=== PATIENT | female | born 1965 | race Caucasian/White ===

== ENCOUNTER 2021-06-13 10:14 | Observation (INO) | payer SELFPAY ==
[2021-06-13] VITALS (11 sets, daily range): BP systolic 130–196; BP diastolic 66–132; PULSE 98–115; RESP 15–26; TEMP 36.4–36.9; O2SAT 98–100; BMI 29.8; BMI 28.8
--- NOTE | 2021-06-13 10:40 | EDS_ITS ---
HPI History of Present Illness Chief Complaint: Chest Pain Informant: patient Onset/Context/Timing Onset: Yesterday Activity at onset: sudden (While sitting in front of TV at rest) Timing: Continuous Quality: Positive for Aching Location: Substernal and - (1-2 hours ago, spontaneously started getting sharp pains in anterior right axilla part of chest) Current Severity: Moderate Maximum Severity: Moderate Worsened By: Nothing; Not Worsened By Breathing Relieved By: Nothing Associated Symptoms: Positive for Nausea, Vomiting (For past 5 days), Dyspnea (Occasionally with exertion, chronic, no different acutely) and Cough (Mild chronic nonproductive); Negative for Fever, Lightheadedness and Palpitations Narrative Narrative: Patient presents because of chest pain. She states she has had vomiting and diarrhea for the past 5 days but since she has been eating very little due to the vomiting, which comes in spurts, now the diarrhea has tapered and she is barely having stools. She denies any hematemesis or bright red blood per rectum or melena. Most of the emesis is either which she has tried to eat which typically makes her nauseated and vomit, or nonbilious stomach acid light yellow in color. She also states that people have been telling her that she looks really schneider for the past several months although she has not gone anywhere and not been trying to schneider. She states she is having some itching in a couple different places on her extremities like her right elbow. Patient states she does not have any health problems however she does not see a doctor at all due to lack of insurance. She works at a [employer]. Apparently, EMS gave the patient aspirin, Brilinta, and heparin. The prehospital EKG was interpreted by ED physician as NOT a STEMI. Her EKG performed here does not show a STEMI. PFS PFS Medical History no medical history no medical history Home Medications NK 06/13/21 [History Last Taken Unknown] Allergy/AdvReac Type Severity Reaction Status Date / Time No Known Allergies Allergy Verified 06/13/21 10:27 Surgical History no surgical history no surgical history Social History Smoking Status: Current every day smoker tobacco type: cigarettes ROS ROS ED Constitutional Constitutional ED: Reports other Details: Malaise, no syncope or presyncope ; Denies chills or fever(s) Eyes Eyes: Denies change in vision or diplopia ENT ENT ED: Denies rhinorrhea or sore throat Cardiovascular Cardiovascular: Denies chest pain or palpitations Respiratory/Chest Respiratory/Chest: Reports as per HPI, cough and dyspnea on exertion; Denies excessive phlegm production Gastrointestinal Gastrointestinal: Reports as per HPI, diarrhea, nausea and vomiting; Denies abdominal pain Genitourinary Genitourinary ED: Denies dysuria or hematuria Musculoskeletal Musculoskeletal: Denies back pain or neck pain Integumentary Reports as per HPI and change in pigmentation; Denies abscess or rash Neurologic Neurologic: Denies headache(s), paresthesias or weakness Psychiatric Psychiatric: Denies anxiety or suicidal thoughts EXAM Physical Exam Const Vital Signs: 06/13/21 10:15 06/13/21 13:25 Temperature 97.6 F L Temperature Source Temporal Pulse Rate 115 H 101 H Respiratory Rate 25 H 15 Respiratory Effort Normal Non-Labored Blood Pressure 171/132 H 130/89 H Blood Pressure Mean 145 102 Pulse Ox 98 100 Oxygen Delivery Method Room Air Room Air Positive well nourished and well developed General Appearance ED: well developed and NAD HEENT Reports moist mucous membranes normocephalic and atraumatic Eyes PERRL and EOMs intact bilaterally Neck full ROM and supple Resp normal respiratory effort and clear to auscultation bilaterally Cardio regular rate, regular rhythm and no murmurs Jugular Venous Distention: Negative for JVD Rate: tachycardic GI non-tender and non-distended Auscultation: normoactive bowel sounds Palpation: soft Back/Spine no CVA tenderness General Back: other FROM Extremity normal to inspection Extremity Narrative: Hyperpigmented nontender extremities General Extremety ED: Negative for edema, pulses abnormal or tenderness General Extremity: Negative for edema or pulses abnormal Neuro oriented x3, CN's II-XII intact bilaterally and no sensory deficits noted Sensorium / Orientation: awake and alert Motor Exam: strength 5/5 throughout Skin no rashes or lesions noted and no wounds Skin Narrative: Diffuse hyperpigmentation mostly face, chest, upper extremities more than the legs. There are no clear schneider lines. She has some slight nontender erythema at her right olecranon that is nontender and without induration, abscess, or any signs of infection. Heart Score History: Slightly/Non-Suspicious ECG: Normal Age: >45 - <65 years Risk Factors: 1 or 2 Risk Factors Troponin: </= Normal Limit Score: 2 MDM MDM MDM Narrative Medical decision making narrative: Patient is feeling better. Labs are noted as below. Her troponin is within normal limits, we did a delta troponin and went up, the levels are noted. I discussed these with Dr. Hart, as the levels are still under the 99th percentile limit. He recommends placing the patient on a heparin drip and admitting her and cardiology will continue to follow/consult. She barely has any discomfort at this time and as prior to nitroglycerin. Initially the patient was hypertensive, but on recheck she is 130/89, we will continue to monitor that. She has not been hypotensive or in any type of adrenal crisis. I did a baseline cortisol due to her unexplained hyperpigmentation and the fact that I cannot do a stat MSH here. It was within normal limits, and was a random level. Lab Data Attestation: I reviewed the patient's lab results. Labs: Laboratory Results - last 24 hr 06/13/21 06/13/21 06/13/21 11:10 11:10 11:10 WBC 4.7 RBC 4.51 Hgb 14.9 Hct 44.9 MCV 99.6 H MCH 33.0 H MCHC 33.2 RDW Std Deviation 50.1 H RDW Coeff of Gregoria 13.6 Plt Count 231 MPV 10.4 Immature Gran % (Auto) 0.800 Neut % (Auto) 60.2 Lymph % (Auto) 24.1 [place] % (Auto) 11.6 H Eos % (Auto) 2.5 Baso % (Auto) 0.8 Absolute Neuts (auto) 2.9 Absolute Lymphs (auto) 1.14 Nucleated RBC % 0 Sodium 136 Potassium 3.4 L Chloride 98 Carbon Dioxide 32.0 Anion Gap 6 BUN 3 L Creatinine 0.69 Estim Creat Clear Calc 97.58 Est GFR (MDRD) Af Amer 113 Est GFR (MDRD) Non-Af 93 BUN/Creatinine Ratio 4.3 L Glucose 134 H Calcium 8.9 Total Bilirubin 0.50 AST 31 ALT 30 Alkaline Phosphatase 147 H Troponin I High Sens 39 Total Protein 6.7 Albumin 2.8 L Globulin 3.9 Albumin/Globulin Ratio 0.7 L Lipase 53 L TSH 2.12 Cortisol 18.00 Urine Color Urine Clarity Urine pH Ur Specific [place] Urine Protein Urine Glucose (UA) Urine Ketones Urine Occult Blood Urine Nitrite Urine Bilirubin Urine Urobilinogen Ur Leukocyte Esterase Urine RBC Urine WBC Ur Squamous Epith Cells Urine Bacteria Urine Mucus 06/13/21 06/13/21 12:35 12:45 WBC RBC Hgb Hct MCV MCH MCHC RDW Std Deviation RDW Coeff of [place] Plt Count MPV Immature Gran % (Auto) Neut % (Auto) Lymph % (Auto) [place] % (Auto) Eos % (Auto) Baso % (Auto) Absolute Neuts (auto) Absolute Lymphs (auto) Nucleated RBC % Sodium Potassium Chloride Carbon Dioxide Anion Gap BUN Creatinine Estim Creat Clear Calc Est GFR (MDRD) Af Amer Est GFR (MDRD) Non-Af BUN/Creatinine Ratio Glucose Calcium Total Bilirubin AST ALT Alkaline Phosphatase Troponin I High Sens 44 Total Protein Albumin Globulin Albumin/Globulin Ratio Lipase TSH Cortisol Urine Color Yellow Urine Clarity Clear Urine pH 8.0 Ur Specific [place] 1.010 Urine Protein Negative Urine Glucose (UA) Normal Urine Ketones Negative Urine Occult Blood Negative Urine Nitrite Negative Urine Bilirubin Negative Urine Urobilinogen Normal Ur Leukocyte Esterase 25 H Urine RBC 0 SEEN Urine WBC 0 SEEN Ur Squamous Epith Cells 0 SEEN Urine Bacteria 0 SEEN Urine Mucus 0 SEEN Radiography Diagnostic Testing: Clinical Impression(s) from Imaging Studies Chest X-Ray 06/13/21 11:30 IMPRESSION: Normal x-ray examination of the chest. Electronically Signed: Home Hedrick MD at 12:14 EDT , Service support , EKG Initial EKG: Attestation: I personally reviewed and interpreted this EKG as follows: Interpretation: No Acute Injury Pattern and Sinus Tachycardia Comments: Normal intervals and axis. Unchanged compared with EMS EKG. Prior: No Prior Discharge Plan Dx/Rx/DC Orders Clinical Impression: Chest pain, unspecified, Hyperpigmentation Disposition Disposition: Acute Care Hospital [facility]
[2021-06-13 11:17] LABS: Absolute Lymphocyte Count 1.14 X10^3/uL (0.83-4.51); Absolute Neutrophil Count 2.9 X10^3/uL (2.0-7.7); Basophil# 0.04 X10^3/uL; Basophil% 0.8 % (0-1); Eosinophil# 0.12 X10^3/uL; Eosinophils% 2.5 % (0-5); Hematocrit 44.9 % (37-47); Hemoglobin 14.9 g/dL (12.0-15.0); Lymphocyte # 1.14 X10^3/ul (0.83-4.51); Lymphocyte % 24.1 % (19-41); Mean Corp Hgb Conc 33.2 g/dL (32-36); Mean Corpuscular Volume 99.6 fL (81-99); Mean Platelet Vol. 10.4 fl (6.2-12.0); Monocyte# 0.55 X10^3/uL; Monocyte% 11.6 % (0-10); NRBC Flagged by Analyzer 0 % (0-5); Neutrophil # 2.85 X10^3/uL (2.7-7.7); Neutrophil % 60.2 % (47-70); Platelet Count 231 K/mm3 (150-450); RBC Distribution Width CV 13.6 % (11.6-14.6); RBC Distribution Width SD 50.1 fl (35.1-43.9); Red Blood Count 4.51 M/mm3 (4.2-5.4); White Blood Count 4.7 K/mm3 (4.4-11.0)
--- NOTE | 2021-06-13 11:21 | EKG12_ITS ---
Test Reason : CP Blood Pressure : / mmHG Vent. Rate : 112 BPM Atrial Rate : 112 BPM P-R Int : 124 ms QRS Dur : 074 ms QT Int : 376 ms P-R-T Axes : 064 070 064 degrees QTc Int : 513 ms Sinus tachycardia Otherwise normal ECG Confirmed by AMANDA DHILLON, MELISSA ([id number]), news videotape editor TRUPTI NICOLE ([id number]) on 06/17/2021 7:51:14 AM Referred By: BB/ Confirmed By:MELISSA PATEL MD
--- NOTE | 2021-06-13 11:30 | RAD_ITS ---
STUDY: X-RAY CHEST REASON FOR EXAM: Female, 55 years old. Chest pain TECHNIQUE: Single AP portable view of the chest. COMPARISON: None. FINDINGS: EKG electrodes are seen. The lungs are clear and expanded. There is no demonstrated pleural abnormality. Normal size heart. Normal mediastinum and praful. Normal visualized pulmonary arteries. Normal visualized aortic arch and descending thoracic aorta. Normal visualized thoracic spine. Normal visualized ribs, clavicles, and shoulders. There is no demonstrated abnormality of the visualized soft tissue structures of the upper abdomen. RAD/Chest 1 View (Portable) IMPRESSION: Normal x-ray examination of the chest. Electronically Signed: Home Hedrick MD at 12:14 EDT , Service support ,
[2021-06-13 11:46] LABS: ALB/GLOB Ratio 0.7 RATIO (0.9-2.4); AST(SGOT) 31 U/L (15-37); Alanine Aminotransfer ALT/SGPT 30 U/L (13-56); Albumin, Serum 2.8 g/dL (3.2-5.0); Alkaline Phosphatase 147 U/L (45-117); Anion Gap 6 (5-15); BUN 3 mg/dL (7-18); BUN/Creat Ratio 4.3 RATIO (10-20); Calcium,Total 8.9 mg/dL (8.5-10.1); Chloride 98 mmol/L (98-107); Creatinine, Serum 0.69 mg/dL (0.55-1.02); EST Glomerular Filtration Rate 93 mL/min (>60); Est Glom Filt Rate - Afr Amer 113 mL/min (>60); Estimated Creatinine Clearance 97.58 ml/min; Globulin 3.9 g/dL (2.2-4.2); Glucose 134 mg/dL (74-106); Lipase 53 U/L (73-393); Potassium 3.4 mmol/L (3.5-5.1); Protein, Total 6.7 g/dL (6.4-8.2); Sodium Level 136 mmol/L (136-145); Thyroid Stim Hormone (TSH) 2.12 uIU/mL (0.358-3.74); Troponin-I HS 39 pg/mL (3.0-54.0)
[2021-06-13 12:43] LABS: Bacteria 0 SEEN /hpf (None Seen); Mucous, Urine 0 SEEN /hpf (<or=2+); Red Blood Cells-Urine 0 SEEN /hpf (0-5); Squamous Epithelial Cells - UA 0 SEEN /hpf (5-10); White Blood Cells 0 SEEN /hpf (0-5)
[2021-06-13] MEDS: 0.9% Normal Saline 1,000 ML 999 ML IV (12:46)
[2021-06-13] MEDS: Ondansetron 4 MG/2 ML Vial IV (12:47)
[2021-06-13 13:04] LABS: Color, Urine Yellow (Yellow); Glucose, Dipstick Normal (Normal); Ketone-Dipstick Negative (Negative); Leukocyte Esterase-Dipstick 25 /ul (Negative); Nitrite-Dipstick Negative (Negative); Occult Blood-Urine Negative /ul (Negative); Protein-Dipstick Negative (Negative); Urine Bilirubin Dipstick Negative (Negative); Urine Clarity Clear (Clear); Urine Urobilinogen Normal (Normal)
[2021-06-13 13:11] LABS: Troponin-I HS 44 pg/mL (3.0-54.0)
[2021-06-13] MEDS: HEPARIN/D5w 25,000 UNITS 25,000 UNITS/250 ML IV.SOLN. 10 UNITS IV (14:11)
--- NOTE | 2021-06-13 14:24 | HP.PCM.HOS_ITS ---
HPI - General General Date of Admission: 06/13/21 Date of Service: 06/13/21 Chief Complaint: chest pain HPI Narrative TISHA HARTMAN, is a 55 F who presents presents with 1 day history of chest pain. States that her pain went to her back and up in her right axilla. Denies any other constitutional symptoms. EMS was called and EKG was normal but she received ticagrelor as well as a bolus of heparin in route to the emergency room. In the emergency room, patient's EKG was confirmed to be normal and not a STEMI. Troponins went from 39-44. Dr. Hart was contacted through the emergency room and recommended just continue with the heparin and then he will see her and determine what next step she would need. Patient is never had chest pain like this before. Was also noted the patient is hyperpigmented. Patient denies using tanning boost or any recent tanning exposures states that she just stays inside. She notes that some of her friends have commented that she appears more tanned lately. [facility] Medical History (Updated 06/13/21 @ 14:[address] Lefty Contreras DO) HTN (hypertension) Medical History no medical history no medical history (Patient denies but has not seen a physician regularly.) Home Medications NK 06/13/21 [History Last Taken Unknown] Allergy/AdvReac Type Severity Reaction Status Date / Time No Known Allergies Allergy Verified 06/13/21 10:27 Surgical History no surgical history no surgical history Social History (Updated 06/13/21 @ 14:[address] Lefty Contreras DO) Smoking Status: Heavy Smoker (>10/day) alcohol intake: current alcohol intake frequency: 0-2 drinks per day details: But can go days without drinking without withdrawal type symptoms. substance use type: does not use ROS ROS Narrative Patient has been having vomiting and diarrhea for the past 5 days. States that she on rare occasion have it for short periods of time but nothing to this extent. Vital Signs Vital Signs Vital Signs: 06/13/21 10:15 06/13/21 13:25 06/13/21 14:00 Temperature 36.4 C L Temperature Source Temporal Pulse Rate 115 H 101 H 98 Respiratory Rate 25 H 15 26 H Respiratory Effort Normal Non-Labored Blood Pressure 171/132 H 130/89 H 196/66 H Blood Pressure Mean 145 102 109 Pulse Ox 98 100 98 Oxygen Delivery Method Room Air Room Air Room Air 06/13/21 14:13 Temperature 36.6 C Temperature Source Temporal Pulse Rate 101 H Respiratory Rate 26 H Respiratory Effort Blood Pressure 196/66 H Blood Pressure Mean 109 Pulse Ox 98 Oxygen Delivery Method Room Air Weight Weight: 67.1 kg Body Mass Index (BMI) 29.8 Physical Exam Narrative Pleasant. No acute distress and afebrile. Const alert General Appearance: cooperative HEENT normocephalic and head/scalp atraumatic Eyes Eyes Narrative: No icterus Neck no lymphadenopathy Neck Narrative: No thyromegaly Resp normal respiratory effort, no retractions, no use of accessory muscles and clear to auscultation bilaterally Cardio regular rate, regular rhythm, S1 normal heart sound and S2 normal heart sound GI normal to inspection, nondistended, normoactive bowel sounds, soft to palpation, non-tender and non-distended Extremity normal to inspection and no clubbing, cyanosis or edema Peripheral Pulses: Yes pulses 2+ throughout Skin no rashes or lesions noted Skin Narrative: Hyperpigmented throughout. Neuro Neuro Narrative: No clonus Sensorium / Orientation: alert Psych affect normal Results Lab / Micro Data Attestation: I reviewed the patient's lab results. Result Diagrams: 06/13/21 11:10 06/13/21 11:10 Labs: Laboratory Results - last 24 hr 06/13/21 11:10: Sodium 136, Potassium 3.4 L, Chloride 98, Carbon Dioxide 32.0, Anion Gap 6, BUN 3 L, Creatinine 0.69, Estim Creat Clear Calc 97.58, Est GFR (MDRD) Af Amer 113, Est GFR (MDRD) Non-Af 93, BUN/Creatinine Ratio 4.3 L, Glucose 134 H, Calcium 8.9, Total Bilirubin 0.50, AST 31, ALT 30, Alkaline Phosphatase 147 H, Troponin I High Sens 39, Total Protein 6.7, Albumin 2.8 L, Globulin 3.9, Albumin/Globulin Ratio 0.7 L, Lipase 53 L, TSH 2.12 06/13/21 11:10: Cortisol 18.00 06/13/21 11:10: WBC 4.7, RBC 4.51, Hgb 14.9, Hct 44.9, MCV 99.6 H, MCH 33.0 H, MCHC 33.2, RDW Std Deviation 50.1 H, RDW Coeff of Gregoria 13.6, Plt Count 231, MPV 10.4, Immature Gran % (Auto) 0.800, Neut % (Auto) 60.2, Lymph % (Auto) 24.1, [place] % (Auto) 11.6 H, Eos % (Auto) 2.5, Baso % (Auto) 0.8, Absolute Neuts (auto) 2.9, Absolute Lymphs (auto) 1.14, Nucleated RBC % 0 06/13/21 12:35: Urine Color Yellow, Urine Clarity Clear, Urine pH 8.0, Ur Specific [place] 1.010, Urine Protein Negative, Urine Glucose (UA) Normal, Urine Ketones Negative, Urine Occult Blood Negative, Urine Nitrite Negative, Urine Bilirubin Negative, Urine Urobilinogen Normal, Ur Leukocyte Esterase 25 H, Urine RBC 0 SEEN, Urine WBC 0 SEEN, Ur Squamous Epith Cells 0 SEEN, Urine Bacteria 0 SEEN, Urine Mucus 0 SEEN 06/13/21 12:45: Troponin I High Sens 44 Micro: Microbiology 06/13/21 11:50 Nasal Secretion SARS-CoV-2 Antigen (Rapid) - Final EKG Initial EKG: Prior EKG tracings: available for review EKG Rhythm Intrepretation: Sinus Rhythm Radiology Impression Chest X-Ray 06/13/21 11:30 IMPRESSION: Normal x-ray examination of the chest. Electronically Signed: Home Hedrick MD at 12:14 EDT , Service support , Assessment & Plan Assessment/Plan (1) Unstable angina: (2) Hyperpigmentation: (3) HTN (hypertension): QUALIFIERS: Hypertension type: unspecified Qualified Code(s): I10 - Essential (primary) hypertension (4) Hypokalemia: PLAN: 1. Unstable angina * Patient is high risk given that she has untreated hypertension and is actively smoking. * Heart score 3 * Cardiology is already been contacted through the emergency room and will be seeing the patient in consultation. They advised to continue with the heparin drip. * Patient already received ticagrelor as well as heparin bolus through EMS * I will hold off any additional ticagrelor at this point time. 2. Hyperpigmentation * Patient denies any tanning beds, trips down [place] or any kind of intentional tanning. States that it is diffuse * Concern is for adrenal insufficiency * Random cortisol was 18 this afternoon * Will check an ACTH stim test tomorrow morning 3. Hypertension * New diagnosis but likely chronic * Add amlodipine 5 mg daily * Patient may require additional agents 4. Hypokalemia * Replace * Check magnesium 5. Hyperglycemia * Unclear if patient is diabetic * Will start the patient on sliding scale * Check an A1c 6. VTE prophylaxis: Not indicated as patient is anticoagulated. 7. CODE STATUS: Addressed with the patient. Patient wishes to be full code. 8. Code vaccination status: Patient stated that she got her first dose of the [place] vaccine back in February but has not followed up to get her second shot. Discussed with her about getting the second shot while she was here she is open to that. Will administer. She states that she does not have a card with her. Charges/Coding Visit Charges OBSV E&M: 14205 Initial observation care L3
--- NOTE | 2021-06-13 14:37 | EKG12_ITS ---
Test Reason : CP Blood Pressure : / mmHG Vent. Rate : 097 BPM Atrial Rate : 097 BPM P-R Int : 112 ms QRS Dur : 074 ms QT Int : 386 ms P-R-T Axes : 052 071 053 degrees QTc Int : 490 ms Normal sinus rhythm Prolonged QT Abnormal ECG When compared with ECG of 13-JUN-2021 10:17, MANUAL COMPARISON REQUIRED, DATA IS UNCONFIRMED Confirmed by AMANDA DHILLON, MELISSA ([id number]), editor at large TRUPTI NICOLE ([id number]) on 06/18/2021 9:35:49 AM Referred By: KATTY Confirmed By:MELISSA PATEL MD
[2021-06-13 14:45] LABS: International Normalized Ratio 1.2; Prothrombin Time (Protime)PT. 14.3 SECONDS (11.7-14.9)
--- NOTE | 2021-06-13 14:54 | PCS.PANDOC ---
PANDEMIC DOCUMENTATION INITIATED: Date: 04/14/2021 Time: 190
[2021-06-13 15:08] LABS: Partial Thromboplast Time > 250.0 Seconds (24.1-36.2)
[2021-06-13 15:30] LABS: Bedside Glucose 91 mg/dL (70-110)
[2021-06-13] MEDS: Potassium Chloride Oral Tablet 20 MEQ 40 MEQ PO (15:35)
[2021-06-13] MEDS: amLODIPine 5 MG Tablet PO (15:35)
[2021-06-13] MEDS: Pantoprazole Sodium 40 MG Tablet PO (15:35)
[2021-06-13] MEDS: 0.9% Saline Lock 10 ML Syringe IV ×2 (15:46→22:42)
--- NOTE | 2021-06-13 15:50 | CON.PCM.CA_ITS ---
Documented by User: LISY Sweet 06/13/21 16:13 Assessment & Plan Assessment/Plan (1) Chest pain, unspecified: (2) HTN (hypertension): QUALIFIERS: Hypertension type: unspecified Qualified Code(s): I10 - Essential (primary) hypertension PLAN: * will obtain stress test and echo to evaluate for chest pain * symptoms could also be related to GI related, will start on a PPI * it is noted that pt does have HTN, she is not on any home medications. Will adjust medications as needed during hospital stay, then would recommend that pt establish be a PCP. HPI Consult Data Date of Consult: 06/13/21 HPI Narrative HPI Narrative: TISHA HARTMAN, is a 55 F who presented to the ER for CP. Pt notes that last night she started vomiting. This is not new. She does this a few times a month. She then had chest heaviness that radiated to right arm. This was a 6/10. This was concerning and that brought her to the ER. She does note that she uses TUMS frequently. She does smoke and does drink 2-3 mikes hard lemonade a night. She does not see a PCP since she does not have insurance. She is not on any medications. EKG demonstrated Sinus tach. [facility] Medical History HTN (hypertension) Medical History no medical history Home Medications NK 06/13/21 [History Last Taken Unknown] Allergy/AdvReac Type Severity Reaction Status Date / Time No Known Allergies Allergy Verified 06/13/21 10:27 Surgical History no surgical history Social History Smoking Status: Heavy Smoker (>10/day) alcohol intake: current alcohol intake frequency: 0-2 drinks per day details: But can go days without drinking without withdrawal type symptoms. substance use type: does not use ROS Constitutional Constitutional: Reports fatigue; Denies anorexia Eyes Eyes: Reports systems reviewed and no addt'l complaints, except as documented ENT HEENT: Reports systems reviewed and no addt'l complaints, except as documented Cardiovascular Cardiovascular: Reports as per HPI Respiratory/Chest Respiratory/Chest: Reports systems reviewed and no addt'l complaints, except as documented Gastrointestinal Gastrointestinal: Reports abdominal pain and heartburn Genitourinary Genitourinary: Reports systems reviewed and no addt'l complaints, except as documented Musculoskeletal Musculoskeletal: Reports systems reviewed and no addt'l complaints, except as documented Physical Exam Const alert, oriented x3, no apparent distress, average body habitus, no limitations, healthy appearing and well nourished Constitutional Narrative: hyperpigmenation HEENT normocephalic, head/scalp atraumatic, hearing grossly normal bilaterally, external nose normal, nasal mucous membranes and turbinates normal and moist oral mucous membranes Eyes PERRL, EOMs intact bilaterally, conjunctivae normal and no scleral icterus Neck full ROM and no JVD Chest inspection of chest normal Resp normal respiratory effort, normal air movement, no retractions, no use of accessory muscles and clear to auscultation bilaterally Cardio regular rate, regular rhythm, S1 normal heart sound, S2 normal heart sound, no murmurs, no rub, no gallops, no clicks, no JVD and peripheral pulses 2+ throughout GI normal to inspection, nondistended, normoactive bowel sounds, soft to palpation, non-tender and non-distended Extremity normal to inspection, full ROM, normal capillary refill, no joint enlargement and no clubbing, cyanosis or edema Charges/Coding Visit Charges Office Visits / Consults: 51595 IP Consult L4 Objective Data Vital Signs: Vital Signs Temp Pulse Resp BP Pulse Ox 97.8 F 104 H 18 191/99 H 100 06/13/21 14:46 06/13/21 15:00 06/13/21 14:46 06/13/21 14:46 06/13/21 14:46 Oxygen Delivery Method Room Air Weight: 142 lb 10.225 oz Body Mass Index (BMI) 28.8 Intake & Output: Intake and Output for Last 24 Hours 06/11/21 06/12/21 06/13/21 23:59 23:59 23:59 Intake Total 1015.5 / 1015.5 Balance 1015.5 / 1015.5 Lab / Micro Data Result Diagrams: 06/13/21 11:10 06/13/21 11:10 Labs: Laboratory Results - last 24 hr 06/13/21 11:10: Sodium 136, Potassium 3.4 L, Chloride 98, Carbon Dioxide 32.0, Anion Gap 6, BUN 3 L, Creatinine 0.69, Estim Creat Clear Calc 97.58, Est GFR (MDRD) Af Amer 113, Est GFR (MDRD) Non-Af 93, BUN/Creatinine Ratio 4.3 L, Glucose 134 H, Calcium 8.9, Total Bilirubin 0.50, AST 31, ALT 30, Alkaline Phosphatase 147 H, Troponin I High Sens 39, Total Protein 6.7, Albumin 2.8 L, Globulin 3.9, Albumin/Globulin Ratio 0.7 L, Lipase 53 L, TSH 2.12 06/13/21 11:10: Cortisol 18.00 06/13/21 11:10: WBC 4.7, RBC 4.51, Hgb 14.9, Hct 44.9, MCV 99.6 H, MCH 33.0 H, MCHC 33.2, RDW Std Deviation 50.1 H, RDW Coeff of Gregoria 13.6, Plt Count 231, MPV 10.4, Immature Gran % (Auto) 0.800, Neut % (Auto) 60.2, Lymph % (Auto) 24.1, [place] % (Auto) 11.6 H, Eos % (Auto) 2.5, Baso % (Auto) 0.8, Absolute Neuts (auto) 2.9, Absolute Lymphs (auto) 1.14, Nucleated RBC % 0 06/13/21 11:10: PT 14.3, INR 1.2, APTT > 250.0 H* 06/13/21 12:35: Urine Color Yellow, Urine Clarity Clear, Urine pH 8.0, Ur Specific [place] 1.010, Urine Protein Negative, Urine Glucose (UA) Normal, Urine Ketones Negative, Urine Occult Blood Negative, Urine Nitrite Negative, Urine Bilirubin Negative, Urine Urobilinogen Normal, Ur Leukocyte Esterase 25 H, Urine RBC 0 SEEN, Urine WBC 0 SEEN, Ur Squamous Epith Cells 0 SEEN, Urine Bacteria 0 SEEN, Urine Mucus 0 SEEN 06/13/21 12:45: Troponin I High Sens 44 06/13/21 15:27: POC Glucose 91 Micro: Microbiology 06/13/21 11:50 Nasal Secretion SARS-CoV-2 Antigen (Rapid) - Final Cardiology Labs/Tests 06/13/21 11:10: Sodium 136, Potassium 3.4 L, Chloride 98, Carbon Dioxide 32.0, Anion Gap 6, BUN 3 L, Creatinine 0.69, Est GFR (MDRD) Af Amer 113, Est GFR (MDRD) Non-Af 93, BUN/Creatinine Ratio 4.3 L, Glucose 134 H, Calcium 8.9, Total Bilirubin 0.50 06/13/21 11:10: WBC 4.7, RBC 4.51, Hgb 14.9, Hct 44.9, MCV 99.6 H, MCH 33.0 H, MCHC 33.2, Plt Count 231, MPV 10.4, Immature Gran % (Auto) 0.800, Neut % (Auto) 60.2, Lymph % (Auto) 24.1, [place] % (Auto) 11.6 H, Eos % (Auto) 2.5, Baso % (Auto) 0.8, Absolute Neuts (auto) 2.9, Nucleated RBC % 0 06/13/21 11:10: PT 14.3, INR 1.2, APTT > 250.0 H* 06/13/21 12:35: Urine Color Yellow, Urine Clarity Clear, Urine pH 8.0, Ur Specific [place] 1.010, Urine Protein Negative, Urine Glucose (UA) Normal, Urine Ketones Negative, Urine Occult Blood Negative, Urine Nitrite Negative, Urine Bilirubin Negative, Urine Urobilinogen Normal, Ur Leukocyte Esterase 25 H, Urine RBC 0 SEEN, Urine WBC 0 SEEN EKG: Sinus tach with HR of 108 Radiography Diagnostic Testing: Radiology Impression Chest X-Ray 06/13/21 11:30 IMPRESSION: Normal x-ray examination of the chest. Electronically Signed: Home Hedrick MD at 12:14 EDT , Service support , Documented by User: Dr. Sallie Hart MD 06/13/21 17:13 Assessment & Plan Assessment/Plan (1) Chest pain, unspecified: (2) HTN (hypertension): QUALIFIERS: Hypertension type: unspecified Qualified Code(s): I10 - Essential (primary) hypertension (3) Hypokalemia: (4) Unstable angina: PLAN: I saw this patient today at bedside along with the nursing staff and the midlevel Card examination essentially normal, electrocardiogram showed normal sinus rhythm and a series of high sensitive troponins has been negative Patient has risk factors with a history of smoking also has history of alcohol use symptoms could be related to GI We will evaluate with echocardiogram and treadmill nuclear stress test. I agree with the midlevel documentation and the plan of cardiac care. HPI Consult Data Date of Consult: 06/13/21 [facility] Medical History HTN (hypertension) Medical History no medical history Home Medications NK 06/13/21 [History Last Taken Unknown] Allergy/AdvReac Type Severity Reaction Status Date / Time No Known Allergies Allergy Verified 06/13/21 10:27 Surgical History no surgical history Social History Smoking Status: Heavy Smoker (>10/day) alcohol intake: current alcohol intake frequency: 0-2 drinks per day details: But can go days without drinking without withdrawal type symptoms. substance use type: does not use Lab / Micro Data Result Diagrams: 06/13/21 11:10 06/13/21 11:10
--- NOTE | 2021-06-13 15:58 | ECHOD_ITS ---
Reason For Study: CHEST PAIN Procedure This was a 2D Doppler, Color Flow transthoracic echocardiogram. Exam performed in department. Left Ventricle Normal left ventricle. The estimated ejection fraction is EF 55-60 %. Right Ventricle Normal right ventricle. Normal systolic function. Atria Normal left atrium. Normal right atrium. Mitral Valve The mitral valve is structurally normal. No prolapse or stenosis seen. No mitral valve insufficiency. Tricuspid Valve Normal tricuspid valve. No tricuspid valve insufficiency. Aortic Valve Normal aortic valve. Pulmonic Valve The pulmonic valve is not well visualized. Great Vessels Normal aortic root. Pericardium/Pleural No pericardial effusion. MMode/2D Measurements & Calculations LVIDd: 3.8 cm IVSd: 1.2 cm Ao root diam: 2.8 cm LVIDs: 2.5 cm LVPWd: 1.2 cm RVDd: 3.1 cm FS: 34.8 % LAV(MOD-bp): 32.5 ml LVAd ap4: 21.2 cm2 LVAd ap2: 22.3 cm2 LAV(MOD-bp) Indexed: 20.4 ml/m2 LVLd ap4: 7.2 cm LVLd ap2: 7.3 cm LAV(MOD-sp2): 33.5 ml EDV(MOD-sp4): 51.2 ml EDV(MOD-sp2): 57.0 ml LAV(MOD-sp4): 30.0 ml EDV(sp4-el): 52.5 ml EDV(sp2-el): 57.9 ml LVAs ap4: 11.9 cm2 LVAs ap2: 11.4 cm2 LVLs ap4: 6.2 cm LVLs ap2: 5.8 cm ESV(MOD-sp4): 19.8 ml ESV(MOD-sp2): 19.5 ml ESV(sp4-el): 19.5 ml ESV(sp2-el): 19.0 ml EF(MOD-sp4): 61.3 % EF(MOD-sp2): 65.9 % EF(sp4-el): 62.8 % SV(MOD-sp4): 31.4 ml SV(MOD-sp2): 37.6 ml SV(sp4-el): 33.0 ml LA dimension(2D): 3.3 cm LA A4 area: 13.5 cm2 RA A4 area: 11.0 cm2 Doppler Measurements & Calculations MV E max norman: 74.1 cm/sec Lat Peak E' Norman: 4.8 cm/sec Med Peak E' Norman: 4.8 cm/sec E/E' lat: 15.3 E/E' med: 15.5 Ao V2 max: 192.8 cm/sec AI max norman: 459.3 cm/sec LV V1 max: 201.9 cm/sec Ao max P.9 mmHg AI max P.5 mmHg LV V1 max P.3 mmHg AI dec slope: 464.9 cm/sec2 AI P1/2t: 289.4 msec ECHO/Echo Complete Interpretation Summary The estimated ejection fraction is EF 55-60 %. Normal LV systolic function No prior echo to compare Ordering Physician: Hope Khan Performed By: Harper Gonsales, LUCERO, RVT
[2021-06-13 17:25] LABS: Troponin-I HS 42 pg/mL (3.0-54.0)
[2021-06-13 17:50] LABS: Bedside Glucose 137 mg/dL (70-110)
[2021-06-13 22:11] LABS: Bedside Glucose 114 mg/dL (70-110)
[2021-06-13] MEDS: Heparin Injection (Vial) 5,000 UNIT/ML VIAL 5000 UNIT SC (22:33)
[2021-06-13] MEDS: Acetaminophen 325 MG Tablet 650 MG PO (22:41)
[2021-06-13] MEDS: hydrALAZINE 20 MG/ML Vial 10 MG IV (22:41)
[2021-06-14 02:50] VITALS: BP 156/91; PULSE 106; RESP 16; TEMP 36.2; O2SAT 97
[2021-06-14 03:00] VITALS: PULSE 110
--- NOTE | 2021-06-14 05:00 | EKG12_ITS ---
Test Reason : AM Blood Pressure : / mmHG Vent. Rate : 099 BPM Atrial Rate : 099 BPM P-R Int : 122 ms QRS Dur : 076 ms QT Int : 382 ms P-R-T Axes : 064 075 064 degrees QTc Int : 490 ms Normal sinus rhythm Prolonged QT Abnormal ECG When compared with ECG of 13-JUN-2021 15:55, MANUAL COMPARISON REQUIRED, DATA IS UNCONFIRMED Confirmed by AMANDA DHILLON, MELISSA ([id number]), assistant editor VANIA CONWAY ([id number]) on 06/17/2021 2:09:07 PM Referred By: MAGNUS Confirmed By:MELISSA PATEL MD
[2021-06-14 06:15] VITALS: BP 165/98; PULSE 99; RESP 16; TEMP 36.7; O2SAT 99
[2021-06-14] MEDS: Aspirin E.C. 81 MG Tablet PO (06:22)
[2021-06-14 06:36] LABS: Bedside Glucose 114 mg/dL (70-110)
[2021-06-14 06:38] VITALS: BP 165/98; PULSE 99
[2021-06-14] MEDS: hydrALAZINE 20 MG/ML Vial 10 MG IV (06:38)
[2021-06-14] MEDS: 0.9% Saline Lock 10 ML Syringe IV (06:38)
[2021-06-14 07:02] VITALS: PULSE 96
[2021-06-14 07:15] LABS: Anion Gap 5 (5-15); BUN 10 mg/dL (7-18); BUN/Creat Ratio 16.8 RATIO (10-20); Calcium,Total 8.4 mg/dL (8.5-10.1); Chloride 105 mmol/L (98-107); Cholesterol 153 mg/dL (200); Creatinine, Serum 0.59 mg/dL (0.55-1.02); EST Glomerular Filtration Rate 111 mL/min (>60); Est Glom Filt Rate - Afr Amer 135 mL/min (>60); Estimated Creatinine Clearance 110.04 ml/min; Glucose 100 mg/dL (74-106); High Density Lipoprotein 29 mg/dL; Magnesium 2.2 mg/dL (1.6-2.6); Potassium 4.8 mmol/L (3.5-5.1); Sodium Level 139 mmol/L (136-145); Triglycerides 230 mg/dL; Very Low Density Lipoprotein 46 mg/dL (5-40)
[2021-06-14 08:13] LABS: Hemoglobin A1c 5.3 % (3.8-5.6)
[2021-06-14 10:14] VITALS: BP 153/80; PULSE 104; RESP 16; TEMP 37.1; O2SAT 100
[2021-06-14] MEDS: Folic Acid 1 MG Tablet PO (10:23)
[2021-06-14] MEDS: amLODIPine 5 MG Tablet PO (10:23)
[2021-06-14] MEDS: Pantoprazole Sodium 40 MG Tablet PO (10:24)
--- NOTE | 2021-06-14 10:50 | STRESSREP_ITS ---
Stress Test Report Treadmill myocardial perfusion stress test. Indication; 55-year-old patient presented with symptoms of chest pain Patient is heavy smoker, cardiac work-up with a series of troponins negative. Stress protocol: Resting EKG demonstrates. Normal sinus rhythm. Patient exercised according to standard Que protocol. For 4 minutes and 15 seconds, achieving a work level of maximum METS 7.0. The resting heart rate of 104 bpm, humberto to a maximum heart rate of 142 bpm. This value represented 86% of the maximal age-predicted heart rate. The resting blood pressure of 140/68 mmHg, humberto to a maximum blood pressure of 182/82 2 mmHg. Exercise stress test was terminated due to discomfort in lower extremity as well achieving a target heart rate. No symptoms of chest pain reported. Stress EKG showed, no significant ST?T change from the resting EKG, with maximum heart rate of 142 bpm. Arrhythmia: No arrhythmia demonstrated Symptoms: Patient had no symptoms of chest pain Myocardial perfusion protocol. 11.8 mCi ]of Technetium 99m Sestamibi was injected at rest. Following maximal stress, [33.1 mCi ]of Technetium 99m sestamibi was injected. Stress images were obtained stress and rest images were reconstructed and compared in the short axis vertical and horizontal long axis. Gated images were also obtained Perfusion SPECT analysis: Review of the images demonstrate normal uptake of sestamibi at rest, post stress images demonstrate similar uptake of sestamibi to the resting images, homogeneous tracer uptake With no evidence of reversible myocardial ischemia. Gated SPECT analysis: The gated ejection fraction is 68%. Normal LV systolic function with normal LV wall motion Conclusion: Negative treadmill sestamibi myocardial perfusion study for reversible myocardial ischemia Normal LV systolic function Patient has no symptoms to report, in particular no chest pain Sallie Hart MD,FACC,[facility]
--- NOTE | 2021-06-14 11:45 | PCM.DC ---
Documented by User: PATRICIA LinderC 06/14/21 11:51 Discharge Instructions Diet Discharge Diet: Low fat / Low cholesterol Activity Discharge Activity: Return to Normal Activity Dressing / Incision Call your doctor if you observe: Shortness of breath, Dizziness, Chest pain and Increased palpitations (irregular heartbeat) Follow Up Care Please Follow Up With: Aixa Franco When: 1-2 weeks Test Results: Test results from this visit will be discussed in further detail at your follow-up appointment, if applicable. Discharge Plan Admission Admit Date/Time: 06/13/21 14:14 Primary Reason for Your Visit: Chest Pain Attending Provider: Minesh Oliva Primary Care Provider: Care Physician,No Primary Consulting Providers: Sallie Hart Discharge Orders/Prescriptions Prescriptions: New carvedilol 3.125 mg tablet 3.125 mg PO BID 30 Days Qty: 60 RF: 0 Referrals / Follow Up: Care Physician,No Primary [Primary Care Provider] - Disposition Disposition (needs filled in before D/C Order can be placed): Home, Self Care Documented by User: Dr. Minesh Oliva MD 06/14/21 12:23 Discharge Plan Admission Admit Date/Time: 06/13/21 14:14 Primary Reason for Your Visit: Chest Pain Attending Provider: Minesh Oliva Primary Care Provider: Care Physician,No Primary Consulting Providers: Sallie Hart Discharge Orders/Prescriptions Prescriptions: New carvedilol 3.125 mg tablet 3.125 mg PO BID 30 Days Qty: 60 RF: 0 Referrals / Follow Up: Care Physician,No Primary [Primary Care Provider] - Disposition Disposition (needs filled in before D/C Order can be placed): Home, Self Care
--- NOTE | 2021-06-14 11:51 | PCM.DC.SUM ---
Documented by User: SANDIP Linder 06/14/21 11:56 Providers Date of Admission: 06/13/21 Primary Care Physician: No Primary Care Phys Consultations 06/13/21 14:37 Consult: Cardiology Routine Consulting Provider: Sallie Hart Reason for Consult: chest pain EMERGENT Consult: No MD Notified: Yes Date Notified: 06/13/21 Time Notified: 14:22 Method of Notification: Verbal Reason For Visit: CHEST PAIN Diagnosis Discharge Diagnosis (1) Chest pain, unspecified: Status: Acute Code(s): R07.9 - Chest pain, unspecified (2) HTN (hypertension): Status: Acute Code(s): I10 - Essential (primary) hypertension Qualifiers: Hypertension type: unspecified Qualified Code(s): I10 - Essential (primary) hypertension (3) Hypokalemia: Status: Acute Code(s): E87.6 - Hypokalemia (4) Unstable angina: Status: Acute Code(s): I20.0 - Unstable angina Medications at Discharge Home Medications carvedilol 3.125 mg PO BID 30 Days #60 tab 06/14/21 Hospital Course Operations None Procedures 2-D Echocardiogram and Stress test Summary of Care Provided Minutes Spent on Discharge: 35 Hospital Course: Patient is a 55-year-old female who came in on 06/13/2021 with chest pain. Patient states that she has no PCP. Patient denies any medical history however states that she has not seen a physician in some time. Patient underwent echocardiogram which demonstrated EF 55 to 60% as well as a stress test which was negative today. Patient will be discharged with Coreg and instructions to follow-up at [facility] due to not having insurance. Physical Exam Const alert, oriented x3 and no apparent distress General Appearance: cooperative HEENT normocephalic and head/scalp atraumatic Eyes conjunctivae normal and no scleral icterus Neck full ROM and supple General: trachea midline Resp normal respiratory effort, normal air movement and clear to auscultation bilaterally Cardio regular rate, regular rhythm, S1 normal heart sound, S2 normal heart sound and peripheral pulses 2+ throughout Rate: tachycardic GI normal to inspection, nondistended, normoactive bowel sounds, soft to palpation and non-tender Extremity normal capillary refill and no clubbing, cyanosis or edema General Extremity: no tenderness to palpation of joints or extremities Skin skin turgor normal General Skin Exam: no breakdown Lesions: no lesions Rashes: no rashes Neuro oriented x3, moves all extremities, no focal motor deficits and no sensory deficits noted Speech: speech normal Motor Exam: Negative for general weakness Psych affect normal Appearance: appropriate Weight / BMI Weight Weight: 142 lb 10.225 oz Body Mass Index (BMI) 28.8 ABG / Lab / Microbiology Data Result Diagrams: 06/13/21 11:10 06/14/21 05:47 Laboratory: Laboratory Results - last 24 hr 06/13/21 11:10: PT 14.3, INR 1.2, APTT > 250.0 H* 06/13/21 12:35: Urine Color Yellow, Urine Clarity Clear, Urine pH 8.0, Ur Specific [place] 1.010, Urine Protein Negative, Urine Glucose (UA) Normal, Urine Ketones Negative, Urine Occult Blood Negative, Urine Nitrite Negative, Urine Bilirubin Negative, Urine Urobilinogen Normal, Ur Leukocyte Esterase 25 H, Urine RBC 0 SEEN, Urine WBC 0 SEEN, Ur Squamous Epith Cells 0 SEEN, Urine Bacteria 0 SEEN, Urine Mucus 0 SEEN 06/13/21 12:45: Troponin I High Sens 44 06/13/21 15:27: POC Glucose 91 06/13/21 16:50: Troponin I High Sens 42 06/13/21 17:40: POC Glucose 137 H 06/13/21 22:02: POC Glucose 114 H 06/14/21 05:47: Sodium 139, Potassium 4.8, Chloride 105, Carbon Dioxide 29.0, Anion Gap 5, BUN 10, Creatinine 0.59, Estim Creat Clear Calc 110.04, Est GFR (MDRD) Af Amer 135, Est GFR (MDRD) Non-Af 111, BUN/Creatinine Ratio 16.8, Glucose 100, Calcium 8.4 L, Magnesium 2.2, Triglycerides 230 H, Cholesterol 153, LDL Cholesterol 78, VLDL Cholesterol 46 H, HDL Cholesterol 29 L 06/14/21 05:47: Hemoglobin A1c 5.3 06/14/21 06:31: POC Glucose 114 H Microbiology: Microbiology 06/13/21 11:50 Nasal Secretion SARS-CoV-2 Antigen (Rapid) - Final Radiography Diagnostic Testing: Radiology Impression Chest X-Ray 06/13/21 11:30 IMPRESSION: Normal x-ray examination of the chest. Electronically Signed: Home Hedrick MD at 12:14 EDT , Service support , Echocardiogram 06/13/21 15:58 Interpretation Summary The estimated ejection fraction is EF 55-60 %. Normal LV systolic function No prior echo to compare Ordering Physician: Hope Khan Performed By: Harper Gonsales, LUCERO, RVT D/C Instructions Discharge Diet: Low fat / Low cholesterol Call your doctor if you observe: Shortness of breath, Dizziness, Chest pain and Increased palpitations (irregular heartbeat) Please Follow Up With: Aixa Franco When: 1-2 weeks Meaningful Use Info Meaningful Use Diagnoses (Choose all that apply): None applicable Discharge Plan Admission Admit Date/Time: 06/13/21 14:14 Primary Reason for Your Visit: Chest Pain Attending Provider: Minesh Oliva Primary Care Provider: Care Physician,No Primary Consulting Providers: Sallie Hart Discharge Orders/Prescriptions Prescriptions: New carvedilol 3.125 mg tablet 3.125 mg PO BID 30 Days Qty: 60 RF: 0 Referrals / Follow Up: Care Physician,No Primary [Primary Care Provider] - Disposition Disposition (needs filled in before D/C Order can be placed): Home, Self Care Documented by User: Dr. Minesh Oliva MD 06/14/21 12:30 Providers Date of Admission: 06/13/21 Reason For Visit: CHEST PAIN Medications at Discharge Home Medications carvedilol 3.125 mg PO BID 30 Days #60 tab 06/14/21 ABG / Lab / Microbiology Data Result Diagrams: 06/13/21 11:10 06/14/21 05:47 Discharge Plan Admission Admit Date/Time: 06/13/21 14:14 Primary Reason for Your Visit: Chest Pain Attending Provider: Minesh Oliva Primary Care Provider: Care Physician,No Primary Consulting Providers: Sallie Hart Discharge Orders/Prescriptions Prescriptions: New carvedilol 3.125 mg tablet 3.125 mg PO BID 30 Days Qty: 60 RF: 0 Referrals / Follow Up: Care Physician,No Primary [Primary Care Provider] - Disposition Disposition (needs filled in before D/C Order can be placed): Home, Self Care Charges/Coding Addendum Addendum: Dr. Oliva: I personally reviewed the chart and examined the patient, and agree with the above findings. 55-year-old female presents with chest pain that has since resolved. Initial troponin was 39 and then went up to 44 and is now down to 42. Stress test was unremarkable. She is hypertensive and has an elevated heart rate as well. She does not have any primary care prior to admission therefore we will set her up with a [facility] clinic and discharge her on Coreg 3.125 mg p.o. twice daily for blood pressure and as that she follow-up as an outpatient with PCP. Echo was ordered by cardiology was consulted secondary to the slightly elevated troponins. EF was 55 to 60% with normal LV systolic function. I discussed with her the plan for discharge today and she expressed understanding of the risk benefits going home and would like to go home today. Visit Charges OBSV E&M: 19925 Observation care discharge
--- NOTE | 2021-06-14 12:10 | CASEMGMT ---
WES LEONE requested to see pt per Rich HARVEY. WES LEONE in to pt room, pt sitting up in bed in no distress. Pt had questions regarding her stay and how to pay for it. Provided pt with a local healthcare provider directory pamphlet. Pt also aware that this WES LEONE sent to [facility] for assistance. Pt is agreeable to having her meds delivered to her room. WES LEONE notified [facility] that pt requests financial info. TC to [facility], spoke with Ade, states she received the patient assistance form and she will have meds delivered to pt room.
[2021-06-14 13:05] LABS: Bedside Glucose 109 mg/dL (70-110)
--- NOTE | 2021-06-14 14:18 | CM.ED ---
CRISTO Note SW provided patient with self pay packet including the application for [facility] medicaid and food stamps. Patient said that she can apply on line, using her phone, and will review the paperwork when she gets home. SW reviewed that the self packet includes information on prescription benefits and [facility] supports. CRISTO asked if patient had any additional issues or needs and she said no. Plan: Self Pay packet provided Catina THAKUR
== END 2021-06-14 11:51 | disposition home or self-care (01) ==
LOC: ED 13:59 → PCU 14:47
PROVIDERS: Emergency Provider Emergency Medicine; Visit Provider Family Medicine
DX: I20.0 Unstable angina (principal); I10 Essential (primary) hypertension; E87.6 Hypokalemia; F17.210 Nicotine dependence, cigarettes, uncomplicated; Z28.21 Immunization not carried out because of patient refusal; L81.9 Disorder of pigmentation, unspecified; R73.9 Hyperglycemia, unspecified
CPT/HCPCS: 36415; 71045; 78452; 80048; 80053; 80061; 81001; 82533; 82962; 83036; 83690; 83735; 84443; 84484; 85025; 85610; 85730; 87426; 93005; 93017; 93306; 96365; 96372; 96375; 96376; 99218; 99285; 99406; A9500; J7030; A4216; G0378; J2405

== ENCOUNTER 2021-10-23 17:47 | Inpatient (IN) | payer SELFPAY ==
[2021-10-23 17:49] VITALS: BP 141/73; PULSE 85; RESP 14; TEMP 36.5; BMI 28.5
--- NOTE | 2021-10-23 18:43 | EX.ED.DYSGE1 ---
HPI <LISY Merida - Last Filed: 10/23/21 20:32> History of Present Illness Chief Complaint: General Illness Narrative Narrative: 56-year-old female presents with general illness. On 10/18 she started to feel fatigued, lightheaded, and had decreased appetite. She denies fever, chills, N/V/D, chest pain, or shortness of breath. She does have a slight cough but is a smoker (1 PPD). No sick contacts. She is not vaccinated for Covid. Of note she has had chronic issues with her right hand. It has been swelling since Apr 2021. A month ago she saw orthopedics and they were concerned it was a vascular problem so ordered an angiogram which was done on 10/15 at [facility]. 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 She has had wounds on the tips of the index and middle fingers x2 months. They did not do vascular intervention yet or put her on antibiotics. She states she is waiting to hear from Dr. Hannah's office who is at [facility]. She reports no change in the appearance of her right upper extremity. PFSH <LISY Merida - Last Filed: 10/23/21 20:32> [facility] Medical History HTN (hypertension) Medical History no medical history Home Medications carvedilol 6.25 mg PO BID 10/23/21 [History Last Taken 10/23/21] lisinopril-hydrochlorothiazide 1 tab PO DAILY 10/23/21 [History Last Taken 10/23/21] Allergy/AdvReac Type Severity Reaction Status Date / Time No Known Allergies Allergy Verified 10/23/21 17:54 Surgical History no surgical history Social History Smoking Status: Heavy Smoker (>10/day) alcohol intake: current alcohol intake frequency: 0-2 drinks per day details: But can go days without drinking without withdrawal type symptoms. substance use type: does not use ROS <LISY Merida - Last Filed: 10/23/21 20:32> ROS ED ROS Narrative Constitutional: Positive for malaise. Negative for fever, chills. Eyes: Negative for visual change. ENT: Negative for sore throat, ear pain, rhinorrhea. CVS: Negative for palpitations, chest pain, syncope. Respiratory: Negative for shortness of breath, cough, orthopnea. GI: Negative for abdominal pain, nausea, vomiting, diarrhea, constipation, melena, hematochezia. : Negative for dysuria, hematuria or frequency. Neuro: Negative for headache, motor/sensory dysfunction. Skin: Positive for wound on hand. Negative for rash, abscess. Musc: Negative for joint pain, swelling, trauma. Heme: Negative for easy bruising, bleeding, lymphadenopathy. EXAM <LISY Merida - Last Filed: 10/23/21 20:32> Physical Exam Narrative Exam Narrative: CONST: Patient sitting in no acute distress. EYES: Normal inspection. ENT: Normal inspection, dry mucous membranes. NECK: Normal inspection. RESP: No respiratory distress, slight rhonchi and wheezing throughout. CVS: Regular rate and rhythm, no murmur, no gallop. ABD: Soft and nontender, no guarding or rebound, nondistended, no hepatosplenomegaly. Back: Normal inspection. SKIN: Color normal, no rash, warm, dry, intact. EXTREMITIES: Right hand has chronic swelling and thickening of the skin, distal finger pad of index finger is calloused and discolored, distal third finger has yellow seepage under the nail- findings consistent with dry gangrene. Full ROM, 2+ radial pulses, no warmth or erythema. NEURO: Oriented x4. PSYCH: Normal affect. Const Vital Signs: 10/23/21 17:49 10/23/21 18:56 Temperature 97.7 F L Temperature Source Temporal Pulse Rate 85 Respiratory Rate 14 Respiratory Effort Normal Blood Pressure 141/73 H Blood Pressure Mean 95 <Dr. Contreras Harvey MD - Last Filed: 10/23/21 20:31> Physical Exam Const Vital Signs: 10/23/21 17:49 10/23/21 18:56 Temperature 97.7 F L Temperature Source Temporal Pulse Rate 85 Respiratory Rate 14 Respiratory Effort Normal Blood Pressure 141/73 H Blood Pressure Mean 95 MDM <LISY Merida - Last Filed: 10/23/21 20:32> [facility] Lab Data Labs: Laboratory Results - last 24 hr 10/23/21 10/23/2122 18:55 18:55 18:55 WBC 9.0 RBC 4.18 L Hgb 15.3 H Hct 41.9 MCV 100.2 H MCH 36.6 H MCHC 36.5 H RDW Std Deviation 50.9 H RDW Coeff of Gregoria 13.9 Plt Count 379 MPV 9.1 Immature Gran % (Auto) 1.400 H Neut % (Auto) 79.4 H Lymph % (Auto) 12.0 L Story % (Auto) 6.2 Eos % (Auto) 0.9 Baso % (Auto) 0.1 Absolute Neuts (auto) 7.2 Absolute Lymphs (auto) 1.08 Nucleated RBC % 0 ESR Sodium 122 L Potassium 2.9 L Chloride 77 L Carbon Dioxide 32.0 Anion Gap 13 BUN 76 H Creatinine 1.43 H Estim Creat Clear Calc 44.38 Est GFR (MDRD) Af Amer 49 L Est GFR (MDRD) Non-Af 40 L BUN/Creatinine Ratio 53.1 H Glucose 110 H Serum Osmolality Calcium 14.2 H* Total Bilirubin 0.60 Direct Bilirubin 0.09 AST 47 H ALT 41 Alkaline Phosphatase 101 Total Protein 7.0 Albumin 3.1 L Globulin 3.9 TSH 10/23/21 10/23/21 10/23/21 18:55 18:55 19:55 WBC RBC Hgb Hct MCV MCH MCHC RDW Std Deviation RDW Coeff of Gregoria Plt Count MPV Immature Gran % (Auto) Neut % (Auto) Lymph % (Auto) Story % (Auto) Eos % (Auto) Baso % (Auto) Absolute Neuts (auto) Absolute Lymphs (auto) Nucleated RBC % ESR 38 H Sodium Potassium Chloride Carbon Dioxide Anion Gap BUN Creatinine Estim Creat Clear Calc Est GFR (MDRD) Af Amer Est GFR (MDRD) Non-Af BUN/Creatinine Ratio Glucose Serum Osmolality 290 Calcium Total Bilirubin Direct Bilirubin AST ALT Alkaline Phosphatase Total Protein Albumin Globulin TSH 4.11 H Radiography Diagnostic Testing: Clinical Impression(s) from Imaging Studies Chest X-Ray 10/23/21 19:10 IMPRESSION: There are no acute findings. Electronically Signed: Beny Mann MD at 19:56 EST , <Dr. Contreras Harvye MD - Last Filed: 10/23/21 20:31> [facility] Narrative Medical decision making narrative: Patient is a middle-aged woman who smokes 1 pack/day and drinks daily. She not had a drink in 2 days. She states she feels terrible. She feels weak. She complains of dry mouth thirst. She states her urine output has been decreased. She has no energy. She denies night sweats or weight loss. She denies headache. Denies visual, ocular auditory symptoms. She does have a slight cough which is chronic. She denies hemoptysis. She denies pleuritic pain. She denies productive cough at this time. She does report nausea without vomiting diarrhea. She denies change in color, consistency or caliber of her stool. She denies blood in her urine. Her urine is been darker. Patient denies skin lesions. Patient does not appear well. She has a strawberry colored tongue and not many papilla lie on her tongue. Conjunctive is pink. Sclerae anicteric. Lungs reveal some scattered abnormal breath sounds. Heart is regular without murmur, gallop or rub. Abdomen soft nontender no palp pulsatile mass or abdominal bruit. No CVA tenderness noted. There is no clubbing of the extremities. She has palpable radial pulses. She has a nonfocal neurologic exam. Will obtain appropriate blood work to assess for infectious or metabolic cause. CBC is unremarkable. Hemoglobin slightly low at 15.3. MCV is 100.2. Differential reveals a slight shift with no bandemia. Basic metabolic panel is remarkable for a sodium of 122, potassium of 2.9 and chloride of 77. This might be due to but unlikely to 12.5 mg of hydrochlorothiazide. BUN is elevated 76 with a creatinine 1.43. BUN is markedly elevated from baseline and creatinine is slightly elevated from baseline. Her BUN to creatinine ratio is 53:1. Calcium is elevated at 14.2. Hepatic panel was obtained to assess for alkaline phosphatase, total protein and albumin. The hyponatremia may be due to the thiazide diuretic also need to evaluate for SIADH. Since she has hypercalcemia we'll need to evaluate for malignancy. Additional blood work was ordered. A liter of normal saline was ordered wide-open to be followed by infusion at 250 cc/h. Will replenish her potassium orally. Patient has mild hypoalbuminemia. TSH is slightly elevated. Doubt this is the cause of her hyponatremia. Lab Data Attestation: I reviewed the patient's lab results. Lab results narrative: White count is normal. Hemoglobin is slightly elevated 15.3 with an MCV of 100 and Labs: Laboratory Results - last 24 hr 10/23/21 10/23/21 10/23/21 18:55 18:55 18:55 WBC 9.0 RBC 4.18 L Hgb 15.3 H Hct 41.9 MCV 100.2 H MCH 36.6 H MCHC 36.5 H RDW Std Deviation 50.9 H RDW Coeff of Gregoria 13.9 Plt Count 379 MPV 9.1 Immature Gran % (Auto) 1.400 H Neut % (Auto) 79.4 H Lymph % (Auto) 12.0 L Story % (Auto) 6.2 Eos % (Auto) 0.9 Baso % (Auto) 0.1 Absolute Neuts (auto) 7.2 Absolute Lymphs (auto) 1.08 Nucleated RBC % 0 ESR Sodium 122 L Potassium 2.9 L Chloride 77 L Carbon Dioxide 32.0 Anion Gap 13 BUN 76 H Creatinine 1.43 H Estim Creat Clear Calc 44.38 Est GFR (MDRD) Af Amer 49 L Est GFR (MDRD) Non-Af 40 L BUN/Creatinine Ratio 53.1 H Glucose 110 H Serum Osmolality Calcium 14.2 H* Total Bilirubin 0.60 Direct Bilirubin 0.09 AST 47 H ALT 41 Alkaline Phosphatase 101 Total Protein 7.0 Albumin 3.1 L Globulin 3.9 TSH 10/23/21 10/23/21 10/23/21 18:55 18:55 19:55 WBC RBC Hgb Hct MCV MCH MCHC RDW Std Deviation RDW Coeff of Gregoria Plt Count MPV Immature Gran % (Auto) Neut % (Auto) Lymph % (Auto) Story % (Auto) Eos % (Auto) Baso % (Auto) Absolute Neuts (auto) Absolute Lymphs (auto) Nucleated RBC % ESR 38 H Sodium Potassium Chloride Carbon Dioxide Anion Gap BUN Creatinine Estim Creat Clear Calc Est GFR (MDRD) Af Amer Est GFR (MDRD) Non-Af BUN/Creatinine Ratio Glucose Serum Osmolality 290 Calcium Total Bilirubin Direct Bilirubin AST ALT Alkaline Phosphatase Total Protein Albumin Globulin TSH 4.11 H Radiography Chest X-Ray - ED: 1 View (Single view chest x-ray reveals minimal chronic changes. Cardiac silhouette size normal. Perihilar region unremarkable. Osseous structures are unremarkable. There is no evidence of mass to suggest malignancy.) Diagnostic Testing: Clinical Impression(s) from Imaging Studies Chest X-Ray 10/23/21 19:10 IMPRESSION: There are no acute findings. Electronically Signed: Beny Mann MD at 19:56 EST Reading Location ID and State: [facility] / [place] , Service support , <Dr. Contreras Harvey MD - Last Filed: 10/23/21 20:31> Critical Care Time Critical Care Time: Yes Critical care time (excluding procedures): 30-74 minutes (31), Including time spent: (History, physical, review of prior records, documentation, rotation lab results initiation of therapy), Discussing w/Patient &/or Family/Foam Fabricator, Discussing w/Consultants and Arranging Admission or Transfer Discharge Plan Dx/Rx/DC Orders Clinical Impression: Hypercalcemia, Acute hyponatremia, Acute hypokalemia, Acute prerenal azotemia, Creatinine elevation, Macrocytosis without anemia Disposition Disposition: Acute Care Hospital [facility]
[2021-10-23] MEDS: 0.9% Normal Saline 1,000 ML 999 ML IV (18:54)
--- NOTE | 2021-10-23 19:10 | RAD_ITS ---
STUDY: X-RAY CHEST REASON FOR EXAM: Female, 56 years old. CHEST PAIN cough TECHNIQUE: XR Chest 1 View COMPARISON: 06.13.21 FINDINGS: There is no demonstrated pleural abnormality. Normal size heart. Normal mediastinum and praful. Normal visualized pulmonary arteries. Normal visualized aortic arch and descending thoracic aorta. Normal visualized thoracic spine. Normal visualized ribs, clavicles, and shoulders. There is no demonstrated abnormality of the visualized soft tissue structures of the upper abdomen. RAD/Chest 1 View (Portable) IMPRESSION: There are no acute findings. Electronically Signed: Beny Mann MD at 19:56 EST ,
[2021-10-23 19:13] LABS: Absolute Lymphocyte Count 1.08 X10^3/uL (0.83-4.51); Absolute Neutrophil Count 7.2 X10^3/uL (2.0-7.7); Basophil# 0.01 X10^3/uL; Basophil% 0.1 % (0-1); Eosinophil# 0.08 X10^3/uL; Eosinophils% 0.9 % (0-5); Hematocrit 41.9 % (37-47); Hemoglobin 15.3 g/dL (12.0-15.0); Lymphocyte # 1.08 X10^3/ul (0.83-4.51); Mean Corp Hgb Conc 36.5 g/dL (32-36); Mean Corpuscular Hgb 36.6 pg (27.0-32.0); Mean Corpuscular Volume 100.2 fL (81-99); Mean Platelet Vol. 9.1 fl (6.2-12.0); Monocyte# 0.56 X10^3/uL; Monocyte% 6.2 % (0-10); NRBC Flagged by Analyzer 0 % (0-5); Neutrophil # 7.17 X10^3/uL (2.7-7.7); Neutrophil % 79.4 % (47-70); Platelet Count 379 K/mm3 (150-450); RBC Distribution Width CV 13.9 % (11.6-14.6); RBC Distribution Width SD 50.9 fl (35.1-43.9); Red Blood Count 4.18 M/mm3 (4.2-5.4)
[2021-10-23 19:31] LABS: Anion Gap 13 (5-15); BUN 76 mg/dL (7-18); BUN/Creat Ratio 53.1 RATIO (10-20); Calcium,Total 14.2 mg/dL (8.5-10.1); Chloride 77 mmol/L (98-107); Creatinine, Serum 1.43 mg/dL (0.55-1.02); EST Glomerular Filtration Rate 40 mL/min (>60); Est Glom Filt Rate - Afr Amer 49 mL/min (>60); Estimated Creatinine Clearance 44.38 ml/min; Glucose 110 mg/dL (74-106); Potassium 2.9 mmol/L (3.5-5.1); Sodium Level 122 mmol/L (136-145)
[2021-10-23 20:00] VITALS: BP 115/72; PULSE 72; RESP 17; O2SAT 94
[2021-10-23 20:04] LABS: AST(SGOT) 47 U/L (15-37); Alanine Aminotransfer ALT/SGPT 41 U/L (13-56); Albumin, Serum 3.1 g/dL (3.2-5.0); Alkaline Phosphatase 101 U/L (45-117); Bilirubin, Direct 0.09 mg/dL (0.00-0.30); Globulin 3.9 g/dL (2.2-4.2)
[2021-10-23 20:13] LABS: Erythrocyte Sedimentation Rate 38 mm/hr (0-30)
[2021-10-23 20:16] LABS: Thyroid Stim Hormone (TSH) 4.11 uIU/mL (0.358-3.74)
[2021-10-23 20:21] LABS: Osmolality, Serum 290 mOsm/KG (275-295)
[2021-10-23] MEDS: Potassium Chloride Oral Soln 20 MEQ/15 ML UDC 40 MEQ PO ×2 (20:26→21:15)
[2021-10-23 20:37] LABS: Vitamin B12 1618 pg/mL (211-911)
--- NOTE | 2021-10-23 20:43 | PCM.HP.STD ---
HPI - General General Date of Admission: 10/23/21 HPI Narrative TISHA HARTMAN, is a 56 F with a significant history of peripheral artery disease; tobacco abuse and alcoholism who presents to the emergency department with malaise. Associated with her symptoms is lightheadedness; anorexia and insomnia. Her symptoms has been going on for about 4 days. Her symptoms has been progressively worsening. Also she has peripheral artery disease and had an angiogram recently. Patient follows up with a vascular surgeon. [facility] Medical History HTN (hypertension) Home Medications carvedilol 6.25 mg PO BID 10/23/21 [History Last Taken 10/23/21] lisinopril-hydrochlorothiazide 1 tab PO DAILY 10/23/21 [History Last Taken 10/23/21] Allergy/AdvReac Type Severity Reaction Status Date / Time No Known Allergies Allergy Verified 10/23/21 17:54 Surgical History History of appendectomy Previous section Social History Smoking Status: Heavy Smoker (>10/day) alcohol intake: current alcohol intake frequency: 0-2 drinks per day details: But can go days without drinking without withdrawal type symptoms. substance use type: does not use ROS ROS Narrative Review of system Pertinent positives and pertinent negatives as noted in HPI. All other systems were reviewed and are negative. Vital Signs Vital Signs Vital Signs: 10/23/21 17:49 10/23/21 18:56 Temperature 97.7 F L Temperature Source Temporal Pulse Rate 85 Respiratory Rate 14 Respiratory Effort Normal Blood Pressure 141/73 H Blood Pressure Mean 95 Weight Weight: 64 kg Body Mass Index (BMI) 28.5 Physical Exam Narrative Physical exam: General: Well-nourished, well-developed. Head: Normocephalic, atraumatic, no tenderness Eyes: PERRLA, EOMI Neck: Nontender, full range of motion, no spinal tenderness, deformities, step-off CVS: Regular rate and rhythm. S1-S2 present. Murmur present, gallop or rub. Respiratory : clear to auscultation bilaterally, chest wall nontender, no wheezing Abdomen: Soft, nontender, nondistended, normal bowel sounds, no masses : Deferred Back: Nontender, no CVA tenderness, no midline spinal tenderness, deformities, step-offs Extremities: Necrotic fingers. Skin: Normal color, no trauma, abrasions Neuro: Alert, oriented, cranial nerves II through XII grossly intact. Psychiatry: Normal mood. Normal affect. Not depressed. Not anxious. Results Lab / Micro Data Result Diagrams: 10/23/21 18:55 10/23/21 18:55 Labs: Laboratory Results - last 24 hr 10/23/21 18:55: WBC 9.0, RBC 4.18 L, Hgb 15.3 H, Hct 41.9, MCV 100.2 H, MCH 36.6 H, MCHC 36.5 H, RDW Std Deviation 50.9 H, RDW Coeff of Gregoria 13.9, Plt Count 379, MPV 9.1, Immature Gran % (Auto) 1.400 H, Neut % (Auto) 79.4 H, Lymph % (Auto) 12.0 L, [place] % (Auto) 6.2, Eos % (Auto) 0.9, Baso % (Auto) 0.1, Absolute Neuts (auto) 7.2, Absolute Lymphs (auto) 1.08, Nucleated RBC % 0 10/23/21 18:55: Sodium 122 L, Potassium 2.9 L, Chloride 77 L, Carbon Dioxide 32.0, Anion Gap 13, BUN 76 H, Creatinine 1.43 H, Estim Creat Clear Calc 44.38, Est GFR (MDRD) Af Amer 49 L, Est GFR (MDRD) Non-Af 40 L, BUN/Creatinine Ratio 53.1 H, Glucose 110 H, Calcium 14.2 H* 10/23/21 18:55: Total Bilirubin 0.60, Direct Bilirubin 0.09, AST 47 H, ALT 41, Alkaline Phosphatase 101, Total Protein 7.0, Albumin 3.1 L, Globulin 3.9 10/23/21 18:55: TSH 4.11 H 10/23/21 18:55: ESR 38 H 10/23/21 19:55: Serum Osmolality 290 10/23/21 19:55: Vitamin B12 1618 H Micro: Microbiology 10/23/21 19:05 Nasal Secretion SARS-CoV-2 Antigen (Rapid) - Final Radiology Impression Chest X-Ray 10/23/21 19:10 IMPRESSION: There are no acute findings. Electronically Signed: Beny Mann MD at 19:56 EST Reading Location ID and State: [facility] / [place] , Service support , Assessment & Plan Assessment/Plan (1) Hypercalcemia: (2) Acute hyponatremia: (3) Acute hypokalemia: (4) Acute prerenal azotemia: PLAN: Acute hypercalcemia Calcium level of 14.2. Albumin is 3.1. Corrected for low albumin calcium is actually 14.9. Chest x-ray was visualized and independently interpreted. I agree with the latest impression of no acute findings. Also there is hyperinflation. Check vitamin D level. Check a PTH. Check SPEP and UPEP. Of note patient is on hydrochlorothiazide which can cause hypercalcemia. Stop hydrochlorothiazide as patient also has a concomitant DANGELO. At the emergency department patient received IV fluid bolus. Normal saline IV with IV potassium ordered. Nephrology consult. Hyponatremia Sodium presentation was 122. Serum osmolality is normal at 290 Check uric acid The patient is on hydrochlorothiazide that will affect urine osmolality and urine sodium. TSH is mildly elevated. Check a.m. cortisol. Gentle IV hydration. Trend BMP. Hypokalemia Potassium on presentation was 2.9. Received p.o. potassium emergency department. Normal saline with potassium infusion ordered. Trend BMP. Erythrocytosis Review of labs showed hemoglobin 15.3, mildly elevated. Hemoglobin on 06/13/2021 was 14.9. Likely secondary to smoking with dehydration contributing. Trend CBC. DANGELO Creatinine of 1.43. BUN is 76. BUN over creatinine is 53.1. Her creatinine in 2020 was 0.59 and 0.69. Likely prerenal. IV hydration as above. Trend BMP. Avoid nephrotoxins. Hold lisinopril and hydrochlorothiazide held. Avoid NSAIDs. Hypertension Blood pressure is not within goal Carvedilol continued. Lisinopril and hydrochlorothiazide held secondary to DANGELO. As needed hydralazine ordered. Trend blood pressure and adjust blood pressure medications. Tobacco abuse Counseled Declined nicotine patch stating that with her PAD she has instructed not even to very take a nicotine patch DVT prophylaxis Subcutaneous Lovenox ordered. Charges/Coding Visit Charges Inpatient E&M: 72157 Init Hosp L3
[2021-10-23 20:45] VITALS: BP 112/80; PULSE 76; RESP 17; TEMP 36.4; O2SAT 94
[2021-10-23] MEDS: 0.9% Normal Saline 1,000 ML 250 ML IV (20:55)
--- NOTE | 2021-10-23 21:01 | PCM.HP.STD ---
HPI - General General Date of Admission: 10/23/21 HPI Narrative TISHA HARTMAN, is a 56 F who presents [facility] Medical History HTN (hypertension) Medical History no medical history Home Medications carvedilol 6.25 mg PO BID 10/23/21 [History Last Taken 10/23/21] lisinopril-hydrochlorothiazide 1 tab PO DAILY 10/23/21 [History Last Taken 10/23/21] Allergy/AdvReac Type Severity Reaction Status Date / Time No Known Allergies Allergy Verified 10/23/21 17:54 Surgical History no surgical history Social History Smoking Status: Heavy Smoker (>10/day) alcohol intake: current alcohol intake frequency: 0-2 drinks per day details: But can go days without drinking without withdrawal type symptoms. substance use type: does not use Vital Signs Vital Signs Vital Signs: 10/23/21 17:49 10/23/21 18:56 10/23/21 20:00 Temperature 97.7 F L Temperature Source Temporal Pulse Rate 85 72 Respiratory Rate 14 17 Respiratory Effort Normal Blood Pressure 141/73 H 115/72 Blood Pressure Mean 95 86 Pulse Ox 94 Oxygen Delivery Method Room Air 10/23/21 20:45 Temperature 97.5 F L Temperature Source Oral Pulse Rate 76 Respiratory Rate 17 Respiratory Effort Blood Pressure 112/80 Blood Pressure Mean 90 Pulse Ox 94 Oxygen Delivery Method Room Air Weight Weight: 64 kg Body Mass Index (BMI) 28.5 Results Lab / Micro Data Result Diagrams: 10/23/21 18:55 10/23/21 18:55 Labs: Laboratory Results - last 24 hr 10/23/21 18:55: WBC 9.0, RBC 4.18 L, Hgb 15.3 H, Hct 41.9, MCV 100.2 H, MCH 36.6 H, MCHC 36.5 H, RDW Std Deviation 50.9 H, RDW Coeff of Gregoria 13.9, Plt Count 379, MPV 9.1, Immature Gran % (Auto) 1.400 H, Neut % (Auto) 79.4 H, Lymph % (Auto) 12.0 L, [place] % (Auto) 6.2, Eos % (Auto) 0.9, Baso % (Auto) 0.1, Absolute Neuts (auto) 7.2, Absolute Lymphs (auto) 1.08, Nucleated RBC % 0 10/23/21 18:55: Sodium 122 L, Potassium 2.9 L, Chloride 77 L, Carbon Dioxide 32.0, Anion Gap 13, BUN 76 H, Creatinine 1.43 H, Estim Creat Clear Calc 44.38, Est GFR (MDRD) Af Amer 49 L, Est GFR (MDRD) Non-Af 40 L, BUN/Creatinine Ratio 53.1 H, Glucose 110 H, Calcium 14.2 H* 10/23/21 18:55: Total Bilirubin 0.60, Direct Bilirubin 0.09, AST 47 H, ALT 41, Alkaline Phosphatase 101, Total Protein 7.0, Albumin 3.1 L, Globulin 3.9 10/23/21 18:55: TSH 4.11 H 10/23/21 18:55: ESR 38 H 10/23/21 19:55: Serum Osmolality 290 10/23/21 19:55: Vitamin B12 1618 H Micro: Microbiology 10/23/21 19:05 Nasal Secretion SARS-CoV-2 Antigen (Rapid) - Final Radiology Impression Chest X-Ray 10/23/21 19:10 IMPRESSION: There are no acute findings. Electronically Signed: Beny Mann MD at 19:56 EST ,
[2021-10-23 21:49] VITALS: PULSE 77; BMI 26.3
[2021-10-23 21:57] LABS: Uric Acid 12.4 mg/dL (2.6-6.0)
[2021-10-23 22:00] VITALS: BP 134/84; PULSE 76; RESP 16; TEMP 36.3; O2SAT 98
[2021-10-23] MEDS: MELATONIN 3 MG TABLET PO (22:51)
[2021-10-23] MEDS: Carvedilol 6.25 MG Tablet PO (22:51)
[2021-10-23] MEDS: Acetaminophen 325 MG Tablet 650 MG PO (22:51)
[2021-10-24] VITALS (9 sets, daily range): BP systolic 109–155; BP diastolic 60–75; PULSE 73–90; RESP 14–17; TEMP 36.6–36.7; O2SAT 92–100
[2021-10-24] MEDS: KCL 20MEQ in 0.9% NS 20 MEQ/1,000 ML IV.SOLN. 100 MEQ IV (00:19)
[2021-10-24 02:36] LABS: Anion Gap 8 (5-15); BUN 69 mg/dL (7-18); BUN/Creat Ratio 57.5 RATIO (10-20); Calcium,Total 12.7 mg/dL (8.5-10.1); Chloride 92 mmol/L (98-107); EST Glomerular Filtration Rate 49 mL/min (>60); Est Glom Filt Rate - Afr Amer 60 mL/min (>60); Estimated Creatinine Clearance 48.84 ml/min; Glucose 111 mg/dL (74-106); Sodium Level 128 mmol/L (136-145)
[2021-10-24 06:41] LABS: Absolute Neutrophil Count 5.6 X10^3/uL (2.0-7.7); Basophil# 0.02 X10^3/uL; Basophil% 0.3 % (0-1); Eosinophil# 0.08 X10^3/uL; Eosinophils% 1.1 % (0-5); Hematocrit 37.4 % (37-47); Hemoglobin 12.9 g/dL (12.0-15.0); Lymphocyte % 9.8 % (19-41); Mean Corp Hgb Conc 34.5 g/dL (32-36); Mean Corpuscular Hgb 35.5 pg (27.0-32.0); Mean Platelet Vol. 8.9 fl (6.2-12.0); Monocyte# 0.58 X10^3/uL; Monocyte% 8.2 % (0-10); NRBC Flagged by Analyzer 0 % (0-5); Neutrophil % 78.8 % (47-70); Platelet Count 301 K/mm3 (150-450); RBC Distribution Width CV 14.3 % (11.6-14.6); RBC Distribution Width SD 53.8 fl (35.1-43.9); Red Blood Count 3.63 M/mm3 (4.2-5.4); White Blood Count 7.1 K/mm3 (4.4-11.0)
[2021-10-24 07:04] LABS: Anion Gap 8 (5-15); BUN 61 mg/dL (7-18); BUN/Creat Ratio 70.2 RATIO (10-20); Calcium,Total 11.7 mg/dL (8.5-10.1); Chloride 96 mmol/L (98-107); Creatinine, Serum 0.87 mg/dL (0.55-1.02); EST Glomerular Filtration Rate 72 mL/min (>60); Est Glom Filt Rate - Afr Amer 87 mL/min (>60); Estimated Creatinine Clearance 67.36 ml/min; Glucose 109 mg/dL (74-106); Potassium 3.8 mmol/L (3.5-5.1); Sodium Level 130 mmol/L (136-145)
[2021-10-24 07:18] LABS: Thyroid Stim Hormone (TSH) 2.61 uIU/mL (0.358-3.74)
[2021-10-24] MEDS: Carvedilol 6.25 MG Tablet PO ×2 (08:13→21:12)
[2021-10-24] MEDS: Enoxaparin 40 MG/0.4 ML Syringe SC (08:13)
[2021-10-24 08:20] LABS: PTHIN 19.4 pg/mL (18.4-80.1)
[2021-10-24 08:25] LABS: Vitamin D,25 Hydroxy 10.6 ng/mL
[2021-10-24] MEDS: KCL 40mEq in 0.9% NS 40 MEQ/1,000 ML IV.SOLN 100 MEQ IV ×2 (09:31→17:15)
[2021-10-24 09:55] LABS: Anion Gap 4 (5-15); BUN 54 mg/dL (7-18); BUN/Creat Ratio 63.8 RATIO (10-20); Calcium,Total 11.6 mg/dL (8.5-10.1); Chloride 100 mmol/L (98-107); Creatinine, Serum 0.85 mg/dL (0.55-1.02); EST Glomerular Filtration Rate 74 mL/min (>60); Est Glom Filt Rate - Afr Amer 89 mL/min (>60); Estimated Creatinine Clearance 68.95 ml/min; Glucose 107 mg/dL (74-106); Potassium 4.1 mmol/L (3.5-5.1); Sodium Level 132 mmol/L (136-145)
[2021-10-24] MEDS: Pantoprazole Sodium 40 MG Tablet PO ×2 (10:27→21:12)
--- NOTE | 2021-10-24 10:35 | CASEMGMT ---
CRISTO met with patient. Introduced self and role at [facility]. Patient did apply for Medicaid after her last hospitalization in 2020. She said she never heard anything. She did call [employer] and they had nothing on file. Patient said she should probably re-apply. CRISTO told her that would be a good idea. Patient does have a Primary care doctor with [facility] and is receiving their financial assistance for her care. Patient said the only medications she is on are her heart medicines and they are not very expensive. Patient is aware of [facility]. CRISTO gave patient information on [email or web address]. Patient does have access to the internet. [facility] would not be able to assist patient with discharge meds as she received help approximately 5 months ago. Program can only be used once a year which is based on last time patient received assistance. Kaye Farrell [employer] PLUMBER HELPER MAHAMED
--- NOTE | 2021-10-24 11:25 | CASEMGMT ---
WES LEONE assessment: Face to Face with patient for initial transition planning/care coordination assessment. WES LEONE introduced self and role at [facility], pt voices understanding and consents to assessment. Pt is lying in bed in no distress on room air. Pt is A/Ox4 and answers all questions appropriately. Care providers, pharmacy, and demographics verified. Presentation: Pt w/ decreased appetite, bilat hip pain, and fatigue since wednesday Admitting dx: Hyponatremia, hypocalcemia PCP: Vito Specialists: rosa Kong Pharmacy: [facility]/Kimberly Rojo Insurance: SP Prescription Benefit: SP-pt already utilized [facility] Rx assist program in 05/2021 Living Will/HPOA: Pt does not have LW/HPOA and declines AD info. LNOK: Phyllis Priest, daughter Living Arrangements: Pt lives alone in 2 story home and states no concerns at home. Pt is independent with ADL's. Transportation: Pt drives self and states no transportation concerns. DME/HHC: Pt states no current DME or need for any further DME. Pt states no hx of SNF or HHC. Pt states no concerns with going home at time of discharge. 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 Pt states smokes 1/2 pack cigarettes daily and drinks 2-22oz beers daily and last drink was 10/19/21. Pt states is trying to quit smoking and is interested in resources for ETOH abuse. Gregorio SW aware. Pt states no further concerns/needs. CM to follow for any further discharge planning/needs. Advised pt to ask for CM if any further questions/concerns/needs arise, voices understanding. Pt Goal: Home Plan[place] [place]ONE
--- NOTE | 2021-10-24 12:04 | CASEMGMT ---
Per RN CM patient would like information on substance abuse for her alcoholism. SW Provided patient with information on [facility] on Alcoholism and Drug Abuse as well as AA meetings. Kaye IRBY
[2021-10-24 13:57] LABS: Anion Gap 4 (5-15); BUN 45 mg/dL (7-18); BUN/Creat Ratio 61.6 RATIO (10-20); Calcium,Total 11.5 mg/dL (8.5-10.1); Chloride 101 mmol/L (98-107); Creatinine, Serum 0.73 mg/dL (0.55-1.02); EST Glomerular Filtration Rate 88 mL/min (>60); Est Glom Filt Rate - Afr Amer 106 mL/min (>60); Estimated Creatinine Clearance 80.28 ml/min; Glucose 107 mg/dL (74-106); Potassium 4.4 mmol/L (3.5-5.1); Sodium Level 132 mmol/L (136-145)
--- NOTE | 2021-10-24 14:11 | PN.HOSP_ITS ---
Documented by User: Samanta Torres NP, RULING MACHINE SET UP OPERATOR-C 10/24/21 14:24 Subjective Subjective Patient seen and examined. Reports general malaise. Reports indigestion. Denies nausea, vomiting. States she was taking Tums frequently at home due to ongoing indigestion. Objective Data Objective Data Vital Signs: Vital Signs Temp Pulse Resp BP Pulse Ox 98.1 F 73 16 155/61 H 92 10/24/21 13:37 10/24/21 13:37 10/24/21 13:37 10/24/21 13:37 10/24/21 13:37 Oxygen Delivery Method Room Air Weight: 130 lb 4.691 oz Body Mass Index (BMI) 26.3 Intake & Output: Intake and Output for Last 24 Hours 10/22/21 10/23/21 10/24/21 23:59 23:59 23:59 Intake Total 1000 / 1000 2396.67 / 2396.67 Output Total 400 / 400 Balance 1000 / 1000 1995.67 / Medical Nutrition Assessment Dietitian: Malnutrition Criteria Met Start: 10/24/21 12:33 Freq: Status: Active Protocol: Document 10/24/21 12:33 AG (Rec: 10/24/21 12:33 [id number]) Nutrition Malnutrition Evidence of Malnutrition Exists Yes Malnutrition (severe): Acute Illness/Injury Evidenced By Suboptimal Energy Intake ( Severe),Weight Loss (Severe) Clinical Problem Acute Disease or Injury Related Malnutrition Etiology severe, acute malnutrition r/t inadequate energy intake d/t acute illness Signs/Symptoms as evidenced by reported PO intake meeting <50% of estimated energy needs x 1 week; reported unintentional wt loss of 9.7#/7% wt loss x 1 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 Will add 120mL ensure compact 4x/ day w/ medpass for additional calories/protein if consumed. Lab / Micro Data Result Diagrams: 10/24/21 06:00 10/24/21 13:20 Labs: Laboratory Results - last 24 hr 10/23/21 18:55: WBC 9.0, RBC 4.18 L, Hgb 15.3 H, Hct 41.9, MCV 100.2 H, MCH 36.6 H, MCHC 36.5 H, RDW Std Deviation 50.9 H, RDW Coeff of Gregoria 13.9, Plt Count 379, MPV 9.1, Immature Gran % (Auto) 1.400 H, Neut % (Auto) 79.4 H, Lymph % (Auto) 12.0 L, [place] % (Auto) 6.2, Eos % (Auto) 0.9, Baso % (Auto) 0.1, Absolute Neuts (auto) 7.2, Absolute Lymphs (auto) 1.08, Nucleated RBC % 0 10/23/21 18:55: Sodium 122 L, Potassium 2.9 L, Chloride 77 L, Carbon Dioxide 32.0, Anion Gap 13, BUN 76 H, Creatinine 1.43 H, Estim Creat Clear Calc 44.38, Est GFR (MDRD) Af Amer 49 L, Est GFR (MDRD) Non-Af 40 L, BUN/Creatinine Ratio 53.1 H, Glucose 110 H, Calcium 14.2 H* 10/23/21 18:55: Total Bilirubin 0.60, Direct Bilirubin 0.09, AST 47 H, ALT 41, Alkaline Phosphatase 101, Total Protein 7.0, Albumin 3.1 L, Globulin 3.9 10/23/21 18:55: TSH 4.11 H 10/23/21 18:55: ESR 38 H 10/23/21 18:55: Uric Acid 12.4 H 10/23/21 19:55: Serum Osmolality 290 10/23/21 19:55: Vitamin B12 1618 H 10/24/21 01:52: Sodium 128 L, Potassium 4.0, Chloride 92 L, Carbon Dioxide 28.0, Anion Gap 8, BUN 69 H, Creatinine 1.20 H, Estim Creat Clear Calc 48.84, Est GFR (MDRD) Af Amer 60, Est GFR (MDRD) Non-Af 49 L, BUN/Creatinine Ratio 57.5 H, Glucose 111 H, Calcium 12.7 H* 10/24/21 06:00: WBC 7.1, RBC 3.63 L, Hgb 12.9, Hct 37.4, MCV 103.0 H, MCH 35.5 H , MCHC 34.5 D, RDW Std Deviation 53.8 H, RDW Coeff of Gregoria 14.3, Plt Count 301, MPV 8.9, Immature Gran % (Auto) 1.800 H, Neut % (Auto) 78.8 H, Lymph % (Auto) 9.8 L, [place] % (Auto) 8.2, Eos % (Auto) 1.1, Baso % (Auto) 0.3, Absolute Neuts (auto) 5.6, Absolute Lymphs (auto) 0.70 L, Nucleated RBC % 0 10/24/21 06:00: TSH 2.61 10/24/21 06:00: Vitamin D 25-Hydroxy 10.6, Cortisol 35.10 H 10/24/21 06:00: PTH Intact 19.4 10/24/21 06:00: Sodium 130 L, Potassium 3.8, Chloride 96 L, Carbon Dioxide 26.0, Anion Gap 8, BUN 61 H, Creatinine 0.87, Estim Creat Clear Calc 67.36, Est GFR (MDRD) Af Amer 87, Est GFR (MDRD) Non-Af 72, BUN/Creatinine Ratio 70.2 H, Glucose 109 H, Calcium 11.7 H 10/24/21 09:22: Sodium 132 L, Potassium 4.1, Chloride 100, Carbon Dioxide 28.0, Anion Gap 4 L, BUN 54 H, Creatinine 0.85, Estim Creat Clear Calc 68.95, Est GFR (MDRD) Af Amer 89, Est GFR (MDRD) Non-Af 74, BUN/Creatinine Ratio 63.8 H, Glucose 107 H, Calcium 11.6 H 10/24/21 13:20: Sodium 132 L, Potassium 4.4, Chloride 101, Carbon Dioxide 27.0, Anion Gap 4 L, BUN 45 H, Creatinine 0.73, Estim Creat Clear Calc 80.28, Est GFR (MDRD) Af Amer 106, Est GFR (MDRD) Non-Af 88, BUN/Creatinine Ratio 61.6 H, Gluc ose 107 H, Calcium 11.5 H Micro: Microbiology 10/23/21 19:05 Nasal Secretion SARS-CoV-2 Antigen (Rapid) - Final Radiography Diagnostic Testing: Radiology Impression Chest X-Ray 10/23/21 19:10 IMPRESSION: There are no acute findings. Electronically Signed: Beny Mann MD at 19:56 EST , Physical Exam Const alert, oriented x3 and no apparent distress Orientation / Consciousness: awake, oriented to person, oriented to place and oriented to time HEENT normocephalic and moist oral mucous membranes Eyes PERRL, EOMs intact bilaterally and conjunctivae normal Neck no lymphadenopathy Resp normal respiratory effort and clear to auscultation bilaterally Cardio regular rate, regular rhythm and no murmurs Peripheral Pulses: pulses 2+ throughout GI normal to inspection, nondistended, normoactive bowel sounds, non-tender and non-distended Extremity normal to inspection Skin no rashes or lesions noted Lesions: no lesions Rashes: no rashes Trauma: no lacerations or abrasions Neuro CN's II-XII intact bilaterally, no focal motor deficits, no sensory deficits noted and deep tendon reflexes 2+ bilaterally Psych mental status grossly normal and affect normal Assessment & Plan Assessment/Plan (1) Hypercalcemia: (2) Acute hyponatremia: PLAN: 1. Acute hypercalcemia-improving. Trend labs. Vitamin D, PTH, SPEP pending. HCTZ discontinued. Patient also reports frequent use of Tums for indigestion. Nephrology consulted. 2. Hyponatremia, likely beer protomania versus hypovolemic hyponatremia- improving, continue IV fluids. Trend BMP. 3. Acute kidney injury-resolved with IV fluids. 4. Hypertension-continue carvedilol. Lisinopril/HCTZ held secondary to acute kidney injury. As needed hydralazine. 5. Alcohol dependence-encouraged cessation. No active withdrawal symptoms. 6. Erythrocytosis-likely due to smoking and dehydration. 7. Peripheral arterial disease-does not appear to be on regimen. Follows with vascular surgery. 8. Tobacco abuse-encouraged cessation. 9. GERD-initiated on PPI. 10. Severe protein calorie malnutrition-dietitian following. Continue supplement per dietitian recommendations. DVT prophylaxis-Lovenox subcu This patient was seen by SANDIP Willis under the supervision of Dr. Rodríguez. Time spent examining patient, reviewing data and subsequent management of care: 13 minutes Documented by User: Dr. Chriss Rodríguez MD 10/24/21 14:47 Subjective Subjective The patient was admitted with generalized weakness, loss of appetite, insomnia, dizziness for about 4 days. Patient is a chronic smoker smokes 1 to 1/2 pack/day and has chronic cough. Has not been formally diagnosed COPD, perhaps never had PFT. History of peripheral arterial disease chronic alcohol use and dependence. Objective Data Lab / Micro Data Result Diagrams: 10/24/21 06:00 10/24/21 13:20 Physical Exam Narrative General: Alert, Oriented x3, Cooperative, fatigue HEENT: Atraumatic, PERRLA, EOMI, Normocephalic Oral: No Gingival or Mucosal Lesions/ Ulcerations Neck: Supple, No JVD, Negative Carotid Bruits Lungs: Air entry diminished in bilateral lung bases. No crepitation/rhonchi/wheezing Cardiovascular: Regular rate, Regular Rhythm, Normal S1, Normal S2, systolic murmur LLSB. Abdomen: Bowel Sounds Present, Soft, Non Tender, Non-Distended : No renal angle tenderness. No suprapubic tenderness. Extremities: No edema, Capillary Refill Less than 3 Seconds Skin: No rashes, No breakdown Musculoskeletal: No Tenderness to Palpation of Joints or Extremities Neurological: Cranial nerves II-XII grossly intact, DTR 2+/4 and Symmetrical, Neuro grossly intact Psych/Mental Status: Flat affect. Assessment & Plan Assessment/Plan (1) Hypercalcemia: PLAN: This patient was seen in conjunction with RULING MACHINE SET UP OPERATOR, Samanta. I have independently interviewed and examined the patient and reviewed pertinent history, examination findings, laboratory and plan of management. I have reviewed the note and agree with the documented findings with the few additio nal points. In brief, patient is admitted for generalized nonspecific symptoms of weakness, anorexia, malaise insomnia possible due to acute hypercalcemia. Vitamin D low. Patient emigrated calcium 14.2 most recently 1.5. TSH normal. PTH normal. Cortisol 35.1 elevated. Serum albumin low. Vitamin D therapeutic dose ordered. HCTZ discontinued. SPEP UPEP pending. Chest x-ray no acute finding. Flatwork Finisher consulted. Patient also has hyponatremia. Hyponatremia is more chronic most likely from beer proteinemia, low solute intake. HCTZ discontinued. Encouraged food intake. IV fluid normal saline. Acute kidney injury resolved with IV fluid. Chronic smoker, nicotine dependence, Secondary erythrocytosis from chronic smoker. Peripheral arterial disease, GERD severe protein malnourished. I have discussed my assessment with RULING MACHINE SET UP OPERATOR, Samanta and orders have been reviewed. Charges/Coding Visit Charges Inpatient E&M: 35779 Subs Hosp L2
[2021-10-24] MEDS: Ergocalciferol 1.25 MG (50, 000 UNIT) Capsule PO (16:34)
[2021-10-24 18:15] LABS: Anion Gap 2 (5-15); BUN 40 mg/dL (7-18); BUN/Creat Ratio 60.2 RATIO (10-20); Calcium,Total 10.9 mg/dL (8.5-10.1); Chloride 105 mmol/L (98-107); Creatinine, Serum 0.66 mg/dL (0.55-1.02); EST Glomerular Filtration Rate 98 mL/min (>60); Est Glom Filt Rate - Afr Amer 118 mL/min (>60); Glucose 96 mg/dL (74-106); Potassium 4.8 mmol/L (3.5-5.1); Sodium Level 133 mmol/L (136-145)
--- NOTE | 2021-10-24 19:18 | PCM.CONS.R ---
Assessment & Plan Assessment/Plan (1) Hyponatremia: PLAN: -The patient presented with serum sodium of 122 mmol/L. It is unclear how long she has been hyponatremic. -Hyponatremia is due to volume and solute depletion. Volume depletion may have been due to hypercalcemia induced polyuria. -The patient was treated with IV isotonic fluid with rapid improvement of hyponatremia. -However, serum sodium increased by more than 10 mmol/L and less than 24 hours. -Since the patient has risk factor for osmotic demyelination syndrome such as malnutrition, concurrent hypokalemia, and alcohol use, I have decided to relower the sodium with D5W to avoid osmotic demyelination. -The goal is to increase her serum sodium by around 4 to 6 mmol/L/day. -Goal serum sodium is around 133 to 134 mmol/L by tomorrow evening. (2) Hypercalcemia: PLAN: -This is likely due to excessive intake of Tums prior to admission. -Her PTH is appropriately suppressed. 25-vitamin D level is actually low. 1,25-vitamin D level is pending. -Hypercalcemia has improved with volume repletion and discontinuation of calcium carbonate. -We will continue to monitor serum calcium. (3) DANGELO (acute kidney injury): PLAN: -Resolving. -Suspect DANGELO was due to volume depletion related to polyuria from hypercalcemia. -Renal function has improved with volume repletion. -We will continue to monitor renal function. (4) HTN (hypertension): QUALIFIERS: Hypertension type: unspecified Qualified Code(s): I10 - Essential (primary) hypertension PLAN: -BP is reasonably controlled on carvedilol only. -The patient was also on lisinopril?HCTZ at home. Lisinopril is on hold because of DANGELO. Hydrochlorothiazide is on hold because of hyponatremia and hypercalcemia. -If blood pressure rises, we can restart lisinopril without hydrochlorothiazide. (5) Hypokalemia: PLAN: -The patient presented with serum potassium of 2.9 mmol/L. Hypokalemia increases the patient's risk of osmotic demyelination when it occurs with hyponatremia. See above. -Suspect hypokalemia is due to polyuria related to hypercalcemia. -Potassium level has improved with repletion. -We will monitor serum potassium levels. HPI Consult Data Date of Consult: 10/25/21 HPI Narrative Reason for Consultation: Hyponatremia HPI Narrative: The patient is a 56-year-old woman with past history of hypertension, PAD and alcohol use. The patient presented to the hospital on 10/23/2021 with malaise, anorexia and lightheadedness starting 4 days prior to presentation. The patient denied headache, nausea, vomiting, ataxia, or confusion. The patient denies diarrhea or constipation. On evaluation in the ED, the patient was found to have serum sodium of 122 mmol/L, calcium of 14.2 mg/dL, and serum creatinine of 1.43 mg/dL. The patient reports that she has been taking a lot of Tums prior to admission. She denies [id number] use of NSAIDs. She had been on lisinopril/HCTZ for hypertension along with carvedilol. Prior to this admission, there has been no previous hyponatremia. Serum sodium from 06/14/2021 was 139 mmol/L. [facility] Medical History (Updated 10/25/21 @ 09:[address] Simone Kearns MD) HTN (hypertension) Home Medications carvedilol 6.25 mg PO BID 10/23/21 [History Last Taken 10/23/21] lisinopril-hydrochlorothiazide 1 tab PO DAILY 10/23/21 [History Last Taken 10/23/21] Allergy/AdvReac Type Severity Reaction Status Date / Time No Known Allergies Allergy Verified 10/23/21 17:54 Surgical History History of appendectomy Previous section Social History Smoking Status: Heavy Smoker (>10/day) alcohol intake: current alcohol intake frequency: 0-2 drinks per day details: But can go days without drinking without withdrawal type symptoms. substance use type: does not use ROS ROS Narrative 06/08 review of system was done. It is otherwise noncontributory. See HPI. Physical Exam Narrative General: The patient is not in any apparent distress. HEENT: Normocephalic, atraumatic. Mucous membrane moist, no mucosal erythema. PERRLA, EOMI. Hearing is intact. Neck: Supple, no JVD Heart: Normal S1, S2. No rubs or murmurs. Lungs: Clear to auscultation bilaterally. Abdomen: Normal bowel sound, soft, nontender, no guarding or rebound. Extremity: No edema. There is no clubbing or cyanosis. Musculoskeletal: Full passive range of motion. No joint swelling. Skin: Warm and dry. No rash. Psychiatric: Normal mood and affect. Medical Records Data Medical Nutrition Assessment Dietitian: Malnutrition Criteria Met Start: 10/24/21 12:33 Freq: Status: Active Protocol: Document 10/24/21 12:33 (Rec: 10/24/21 12:33 [id number]) Nutrition Malnutrition Evidence of Malnutrition Exists Yes Malnutrition (severe): Acute Illness/Injury Evidenced By Suboptimal Energy Intake ( Severe),Weight Loss (Severe) Clinical Problem Acute Disease or Injury Related Malnutrition Etiology severe, acute malnutrition r/t inadequate energy intake d/t acute illness Signs/Symptoms as evidenced by reported PO intake meeting <50% of estimated energy needs x 1 week; reported unintentional wt loss of 9.7#/7% 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 Will add 120mL ensure compact 4x/ day w/ medpass for additional calories/protein if consumed. Lab / Micro Data Result Diagrams: 10/25/21 04:21 10/25/21 08:00 Labs: Laboratory Results - last 24 hr 10/23/21 18:55: Sodium 122 L, Potassium 2.9 L, Chloride 77 L, Carbon Dioxide 32.0, Anion Gap 13, BUN 76 H, Creatinine 1.43 H, Estim Creat Clear Calc 44.38, Est GFR (MDRD) Af Amer 49 L, Est GFR (MDRD) Non-Af 40 L, BUN/Creatinine Ratio 53.1 H, Glucose 110 H, Calcium 14.2 H* 10/23/21 18:55: Total Bilirubin 0.60, Direct Bilirubin 0.09, AST 47 H, ALT 41, Alkaline Phosphatase 101, Total Protein 7.0, Albumin 3.1 L, Globulin 3.9 10/23/21 18:55: TSH 4.11 H 10/23/21 18:55: ESR 38 H 10/23/21 18:55: Uric Acid 12.4 H 10/23/21 19:55: Serum Osmolality 290 10/23/21 19:55: Vitamin B12 1618 H 10/24/21 01:52: Sodium 128 L, Potassium 4.0, Chloride 92 L, Carbon Dioxide 28.0, Anion Gap 8, BUN 69 H, Creatinine 1.20 H, Estim Creat Clear Calc 48.84, Est GFR (MDRD) Af Amer 60, Est GFR (MDRD) Non-Af 49 L, BUN/Creatinine Ratio 57.5 H, Glucose 111 H, Calcium 12.7 H* 10/24/21 06:00: WBC 7.1, RBC 3.63 L, Hgb 12.9, Hct 37.4, MCV 103.0 H, MCH 35.5 H, MCHC 34.5 D, RDW Std Deviation 53.8 H, RDW Coeff of Gregoria 14.3, Plt Count 301, MPV 8.9, Immature Gran % (Auto) 1.800 H, Neut % (Auto) 78.8 H, Lymph % (Auto) 9.8 L, [place] % (Auto) 8.2, Eos % (Auto) 1.1, Baso % (Auto) 0.3, Absolute Neuts (auto) 5.6, Absolute Lymphs (auto) 0.70 L, Nucleated RBC % 0 10/24/21 06:00: TSH 2.61 10/24/21 06:00: Vitamin D 25-Hydroxy 10.6, Cortisol 35.10 H 10/24/21 06:00: PTH Intact 19.4 10/24/21 06:00: Sodium 130 L, Potassium 3.8, Chloride 96 L, Carbon Dioxide 26.0, Anion Gap 8, BUN 61 H, Creatinine 0.87, Estim Creat Clear Calc 67.36, Est GFR (MDRD) Af Amer 87, Est GFR (MDRD) Non-Af 72, BUN/Creatinine Ratio 70.2 H, Glucose 109 H, Calcium 11.7 H 10/24/21 09:22: Sodium 132 L, Potassium 4.1, Chloride 100, Carbon Dioxide 28.0, Anion Gap 4 L, BUN 54 H, Creatinine 0.85, Estim Creat Clear Calc 68.95, Est GFR (MDRD) Af Amer 89, Est GFR (MDRD) Non-Af 74, BUN/Creatinine Ratio 63.8 H, Glucose 107 H, Calcium 11.6 H 10/24/21 13:20: Sodium 132 L, Potassium 4.4, Chloride 101, Carbon Dioxide 27.0, Anion Gap 4 L, BUN 45 H, Creatinine 0.73, Estim Creat Clear Calc 80.28, Est GFR (MDRD) Af Amer 106, Est GFR (MDRD) Non-Af 88, BUN/Creatinine Ratio 61.6 H, Glucose 107 H, Calcium 11.5 H 10/24/21 17:13: Sodium 133 L, Potassium 4.8, Chloride 105, Carbon Dioxide 26.0, Anion Gap 2 L, BUN 40 H, Creatinine 0.66, Estim Creat Clear Calc 88.80, Est GFR (MDRD) Af Amer 118, Est GFR (MDRD) Non-Af 98, BUN/Creatinine Ratio 60.2 H, Glucose 96, Calcium 10.9 H Micro: Microbiology 10/23/21 19:05 Nasal Secretion SARS-CoV-2 Antigen (Rapid) - Final Radiology Impression Chest X-Ray 10/23/21 19:10 IMPRESSION: There are no acute findings. Electronically Signed: Beny Mann MD at 19:56 EST ,
[2021-10-24 22:24] LABS: Anion Gap 1 (5-15); BUN 35 mg/dL (7-18); BUN/Creat Ratio 47.4 RATIO (10-20); Calcium,Total 10.5 mg/dL (8.5-10.1); Chloride 107 mmol/L (98-107); Creatinine, Serum 0.74 mg/dL (0.55-1.02); EST Glomerular Filtration Rate 86 mL/min (>60); Est Glom Filt Rate - Afr Amer 105 mL/min (>60); Glucose 132 mg/dL (74-106); Sodium Level 135 mmol/L (136-145)
[2021-10-25] VITALS (9 sets, daily range): BP systolic 130–156; BP diastolic 64–86; PULSE 82–99; RESP 16–18; TEMP 35.9–36.6; O2SAT 95–99
[2021-10-25 00:33] LABS: Urine Sodium 30 mmol/L (Not Establ.)
[2021-10-25 01:03] LABS: Osmolality, Urine 513 mOsm/KG
[2021-10-25 04:28] LABS: Absolute Lymphocyte Count 0.85 X10^3/uL (0.83-4.51); Absolute Neutrophil Count 4.7 X10^3/uL (2.0-7.7); Basophil# 0.03 X10^3/uL; Basophil% 0.5 % (0-1); Eosinophil# 0.16 X10^3/uL; Eosinophils% 2.4 % (0-5); Hematocrit 35.8 % (37-47); Hemoglobin 11.9 g/dL (12.0-15.0); Lymphocyte # 0.85 X10^3/ul (0.83-4.51); Lymphocyte % 12.9 % (19-41); Mean Corp Hgb Conc 33.2 g/dL (32-36); Mean Corpuscular Hgb 35.4 pg (27.0-32.0); Mean Corpuscular Volume 106.5 fL (81-99); Mean Platelet Vol. 8.3 fl (6.2-12.0); Monocyte% 9.1 % (0-10); NRBC Flagged by Analyzer 0 % (0-5); Neutrophil # 4.72 X10^3/uL (2.7-7.7); Neutrophil % 71.8 % (47-70); Platelet Count 242 K/mm3 (150-450); RBC Distribution Width SD 58.7 fl (35.1-43.9); Red Blood Count 3.36 M/mm3 (4.2-5.4); White Blood Count 6.6 K/mm3 (4.4-11.0)
[2021-10-25 04:54] LABS: Anion Gap 2 (5-15); BUN 28 mg/dL (7-18); Chloride 103 mmol/L (98-107); Creatinine, Serum 0.49 mg/dL (0.55-1.02); EST Glomerular Filtration Rate 138 mL/min (>60); Est Glom Filt Rate - Afr Amer 167 mL/min (>60); Estimated Creatinine Clearance 119.61 ml/min; Glucose 101 mg/dL (74-106); Potassium 4.5 mmol/L (3.5-5.1); Sodium Level 133 mmol/L (136-145)
[2021-10-25] MEDS: Pantoprazole Sodium 40 MG Tablet PO ×2 (08:16→21:26)
[2021-10-25] MEDS: Carvedilol 6.25 MG Tablet PO (08:16)
[2021-10-25] MEDS: Enoxaparin 40 MG/0.4 ML Syringe SC (08:16)
[2021-10-25] MEDS: Acetaminophen 325 MG Tablet 650 MG PO ×3 (08:17→21:28)
[2021-10-25 08:31] LABS: Sodium Level 133 mmol/L (136-145)
--- NOTE | 2021-10-25 10:04 | PCM.PN.REN ---
Subjective Subjective Following for hyponatremia, hypercalcemia, and DANGELO. The patient denies headache, nausea, or confusion today. She was walking in the hallway with physical therapy when she was seen today. She denies ataxia. Objective Data Objective Data Vital Signs: Vital Signs Temp Pulse Resp BP Pulse Ox 97.6 F L 85 16 156/85 H 95 10/25/21 08:15 10/25/21 08:15 10/25/21 08:15 10/25/21 08:15 10/25/21 08:15 Oxygen Delivery Method Room Air Weight: 59.1 kg Body Mass Index (BMI) 26.3 Intake & Output: Intake and Output for Last 24 Hours 10/23/21 10/24/21 10/25/21 23:59 23:59 23:59 Intake Total 1000 / 1000 3855.00 / 3855.00 947.5 / 947.5 Output Total 400 / 400 450 / 450 Balance 1000 / 1000 3455.00 / 3455.00 497.5 / 497.5 Medical Nutrition Assessment Dietitian: Malnutrition Criteria Met Start: 10/24/21 12:33 Freq: Status: Active Protocol: Document 10/24/21 12:33 AG (Rec: 10/24/21 12:33 [id number]) Nutrition Malnutrition Evidence of Malnutrition Exists Yes Malnutrition (severe): Acute Illness/Injury Evidenced By Suboptimal Energy Intake ( Severe),Weight Loss (Severe) Clinical Problem Acute Disease or Injury Related Malnutrition Etiology severe, acute malnutrition r/t inadequate energy intake d/t acute illness Signs/Symptoms as evidenced by reported PO intake meeting <50% of estimated energy needs x 1 week; reported unintentional wt loss of 9.7#/7% wt loss x 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 Will add 120mL ensure compact 4x/ day w/ medpass for additional calories/protein if consumed. Lab / Micro Data Result Diagrams: 10/25/21 04:21 10/25/21 08:00 Labs: Laboratory Results - last 24 hr 10/24/21 13:20: Sodium 132 L, Potassium 4.4, Chloride 101, Carbon Dioxide 27.0, Anion Gap 4 L, BUN 45 H, Creatinine 0.73, Estim Creat Clear Calc 80.28, Est GFR (MDRD) Af Amer 106, Est GFR (MDRD) Non-Af 88, BUN/Creatinine Ratio 61.6 H, Glucose 107 H, Calcium 11.5 H 10/24/21 17:13: Sodium 133 L, Potassium 4.8, Chloride 105, Carbon Dioxide 26.0, Anion Gap 2 L, BUN 40 H, Creatinine 0.66, Estim Creat Clear Calc 88.80, Est GFR (MDRD) Af Amer 118, Est GFR (MDRD) Non-Af 98, BUN/Creatinine Ratio 60.2 H, Glucose 96, Calcium 10.9 H 10/24/21 21:36: Sodium 135 L, Potassium 5.0, Chloride 107, Carbon Dioxide 27.0, Anion Gap 1 L, BUN 35 H, Creatinine 0.74, Estim Creat Clear Calc 79.20, Est GFR (MDRD) Af Amer 105, Est GFR (MDRD) Non-Af 86, BUN/Creatinine Ratio 47.4 H, Glucose 132 H, Calcium 10.5 H 10/24/21 23:49: Urine Osmolality 513, Ur Random Sodium 30 10/25/21 04:21: WBC 6.6, RBC 3.36 L, Hgb 11.9 L, Hct 35.8 L, MCV 106.5 H, MCH 35.4 H, MCHC 33.2, RDW Std Deviation 58.7 H, RDW Coeff of Gregoria 15.0 H, Plt Count 242, MPV 8.3, Immature Gran % (Auto) 3.300 H, Neut % (Auto) 71.8 H, Lymph % (Auto) 12.9 L, [place] % (Auto) 9.1, Eos % (Auto) 2.4, Baso % (Auto) 0.5, Absolute Neuts (auto) 4.7, Absolute Lymphs (auto) 0.85, Nucleated RBC % 0 10/25/21 04:21: Sodium 133 L, Potassium 4.5, Chloride 103, Carbon Dioxide 28.0, Anion Gap 2 L, BUN 28 H, Creatinine 0.49 L, Estim Creat Clear Calc 119.61, Est GFR (MDRD) Af Amer 167, Est GFR (MDRD) Non-Af 138, BUN/Creatinine Ratio 57.0 H, Glucose 101, Calcium 10.0 10/25/21 08:00: Sodium 133 L Micro: Microbiology 10/23/21 19:05 Nasal Secretion SARS-CoV-2 Antigen (Rapid) - Final Physical Exam Narrative General: The patient is not in any apparent distress. HEENT: Normocephalic, atraumatic. Mucous membrane moist, no mucosal erythema. Neck: Supple, no JVD Heart: Normal S1, S2. No rubs or murmurs. Lungs: Clear to auscultation bilaterally. Abdomen: Normal bowel sound, soft, nontender, no guarding or rebound. Extremity: No edema. There is no clubbing or cyanosis. Assessment & Plan Assessment/Plan (1) Hyponatremia: PLAN: -The patient presented with serum sodium of 122 mmol/L. It is unclear how long she has been hyponatremic, so we will treat her as chronic hyponatremia. -Hyponatremia is due to volume and solute depletion. Volume depletion may have been due to hypercalcemia induced polyuria. -The patient was treated with IV isotonic fluid with rapid improvement of hyponatremia, serum sodium was increasing by more than 10 mmol/L in less than 24 hours. -The patient has multiple risk factor for osmotic demyelination syndrome: Malnutrition, alcohol use, and coexisting hypokalemia on presentation. -Therefore, IV isotonic fluid was stopped last night. The patient was started on D5W to be lower serum sodium to avoid osmotic demyelination. -The goal is to increase her serum sodium by around 4 to 6 mmol/L/day. -Goal serum sodium is around 133 to 134 mmol/L by this evening. -We will continue to monitor serum sodium closely and titrate D5W as needed. (2) Hypercalcemia: PLAN: -This is likely due to excessive intake of Tums prior to admission. -Her PTH is appropriately suppressed. 25-vitamin D level is actually low. 1,25-vitamin D level is pending. -Hypercalcemia is improving with volume repletion and discontinuation of calcium carbonate. -We will continue to monitor serum calcium. (3) DANGELO (acute kidney injury): PLAN: -Resolved. -Suspect DANGELO was due to volume depletion related to polyuria from hypercalcemia. -Renal function has improved with volume repletion. -We will continue to monitor renal function. (4) HTN (hypertension): QUALIFIERS: Hypertension type: unspecified Qualified Code(s): I10 - Essential (primary) hypertension PLAN: -BP is reasonably controlled on carvedilol only. -The patient was also on lisinopril?HCTZ at home. Lisinopril is on hold because of DANGELO. Hydrochlorothiazide is on hold because of hyponatremia and hypercalcemia. -If blood pressure remains high later today, we can restart lisinopril without hydrochlorothiazide. (5) Hypokalemia: PLAN: -The patient presented with serum potassium of 2.9 mmol/L on 10/23/2021. -Hypokalemia increases the patient's risk of osmotic demyelination when it occurs with hyponatremia. See above. -Suspect hypokalemia was due to polyuria related to hypercalcemia. -Potassium level has improved with repletion. -We will monitor serum potassium levels.
--- NOTE | 2021-10-25 10:22 | PN.HOSP_ITS ---
Documented by User: Samanta Torres NP, MERCHANDISE FOR RESALE PURCHASING AGENT-C 10/25/21 10:39 Subjective Subjective Patient seen and examined. States she feels much better. Denies further epigastric discomfort. Denies symptoms or complaints. Objective Data Objective Data Vital Signs: Vital Signs Temp Pulse Resp BP Pulse Ox 97.6 F L 85 16 156/85 H 95 10/25/21 08:15 10/25/21 08:15 10/25/21 08:15 10/25/21 08:15 10/25/21 08:15 Oxygen Delivery Method Room Air Weight: 130 lb 4.691 oz Body Mass Index (BMI) 26.3 Intake & Output: Intake and Output for Last 24 Hours 10/23/21 10/24/21 10/25/21 23:59 23:59 23:59 Intake Total 1000 / 1000 3855.00 / 3855.00 947.5 / 947.5 Output Total 400 / 400 450 / 450 Balance 1000 / 1000 3455.00 / 3455.00 497.5 / 497.5 Medical Nutrition Assessment Dietitian: Malnutrition Criteria Met Start: 10/24/21 12:33 Freq: Status: Active Protocol: Document 10/24/21 12:33 (Rec: 10/24/21 12:33 [id number]) Nutrition Malnutrition Evidence of Malnutrition Exists Yes Malnutrition (severe): Acute Illness/Injury Evidenced By Suboptimal Energy Intake ( Severe),Weight Loss (Severe) Clinical Problem Acute Disease or Injury Related Malnutrition Etiology severe, acute malnutrition r/t inadequate energy intake d/t acute illness Signs/Symptoms as evidenced by reported PO intake meeting <50% of estimated energy needs x 1 week; reported unintentional wt loss of 9.7#/7% wt loss x 1 week 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 Will add 120mL ensure compact 4x/ day w/ medpass for additional calories/protein if consumed. Lab / Micro Data Result Diagrams: 10/25/21 04:21 10/25/21 10:30 Labs: Laboratory Results - last 24 hr 10/24/21 13:20: Sodium 132 L, Potassium 4.4, Chloride 101, Carbon Dioxide 27.0, Anion Gap 4 L, BUN 45 H, Creatinine 0.73, Estim Creat Clear Calc 80.28, Est GFR (MDRD) Af Amer 106, Est GFR (MDRD) Non-Af 88, BUN/Creatinine Ratio 61.6 H, Glucose 107 H, Calcium 11.5 H 10/24/21 17:13: Sodium 133 L, Potassium 4.8, Chloride 105, Carbon Dioxide 26.0, Anion Gap 2 L, BUN 40 H, Creatinine 0.66, Estim Creat Clear Calc 88.80, Est GFR (MDRD) Af Amer 118, Est GFR (MDRD) Non-Af 98, BUN/Creatinine Ratio 60.2 H, Glucose 96, Calcium 10.9 H 10/24/21 21:36: Sodium 135 L, Potassium 5.0, Chloride 107, Carbon Dioxide 27.0, Anion Gap 1 L, BUN 35 H, Creatinine 0.74, Estim Creat Clear Calc 79.20, Est GFR (MDRD) Af Amer 105, Est GFR (MDRD) Non-Af 86, BUN/Creatinine Ratio 47.4 H, Glucose 132 H, Calcium 10.5 H 10/24/21 23:49: Urine Osmolality 513, Ur Random Sodium 30 10/25/21 04:21: WBC 6.6, RBC 3.36 L, Hgb 11.9 L, Hct 35.8 L, MCV 106.5 H, MCH 35.4 H, MCHC 33.2, RDW Std Deviation 58.7 H, RDW Coeff of Gregoria 15.0 H, Plt Count 242, MPV 8.3, Immature Gran % (Auto) 3.300 H, Neut % (Auto) 71.8 H, Lymph % (Auto) 12.9 L, [place] % (Auto) 9.1, Eos % (Auto) 2.4, Baso % (Auto) 0.5, Absolute Neuts (auto) 4.7, Absolute Lymphs (auto) 0.85, Nucleated RBC % 0 10/25/21 04:21: Sodium 133 L, Potassium 4.5, Chloride 103, Carbon Dioxide 28.0, Anion Gap 2 L, BUN 28 H, Creatinine 0.49 L, Estim Creat Clear Calc 119.61, Est GFR (MDRD) Af Amer 167, Est GFR (MDRD) Non-Af 138, BUN/Creatinine Ratio 57.0 H, Glucose 101, Calcium 10.0 10/25/21 08:00: Sodium 133 L Micro: Microbiology 02/24/22 19:05 Nasal Secretion SARS-CoV-2 Antigen (Rapid) - Final Physical Exam Const alert, oriented x3 and no apparent distress Orientation / Consciousness: awake, oriented to person, oriented to place and oriented to time HEENT normocephalic and moist oral mucous membranes Eyes PERRL, EOMs intact bilaterally and conjunctivae normal Neck no lymphadenopathy Resp clear to auscultation bilaterally Auscultation: diminished lung sounds Cardio regular rate, regular rhythm and no murmurs Peripheral Pulses: pulses 2+ throughout GI normal to inspection, nondistended, normoactive bowel sounds, non-tender and non-distended Extremity normal to inspection Skin no rashes or lesions noted Lesions: no lesions Rashes: no rashes Trauma: no lacerations or abrasions Neuro CN's II-XII intact bilaterally, no focal motor deficits, no sensory deficits noted and deep tendon reflexes 2+ bilaterally Psych mental status grossly normal and affect normal Assessment & Plan Assessment/Plan (1) DANGELO (acute kidney injury): (2) Hyponatremia: PLAN: 1. Acute hypercalcemia-resolved. HCTZ discontinued. Patient reports frequent use of Tums for indigestion. Nephrology consulted. Trend BMP. 2. Hyponatremia, likely hypovolemic hyponatremia-nephrology following. Sodium corrected rapidly, transition to D5W to avoid osmotic demyelination. Trend sodium. 3. Acute kidney injury-resolved with IV fluids. 4. Hypertension-continue carvedilol. Lisinopril/HCTZ held secondary to acute kidney injury. As needed hydralazine. 5. Alcohol dependence-encouraged cessation. No active withdrawal symptoms. 6. Erythrocytosis-likely due to smoking and dehydration. Resolved. 7. Peripheral arterial disease-does not appear to be on regimen. Follows with vascular surgery. 8. Tobacco abuse-encouraged cessation. 9. GERD-initiated on PPI. 10. Severe protein calorie malnutrition-dietitian following. Continue supplement per dietitian recommendations. DVT prophylaxis-Lovenox subcu This patient was seen by SANDIP Willis under the supervision of Dr. Rodríguez. Time spent examining patient, reviewing data and subsequent management of care: 12 minutes Documented by User: Dr. Chriss Rodríguez MD 10/25/21 12:59 Subjective Subjective Follow-up for hyponatremia, hypercalcemia and DANGELO. Patient had increased serum sodium more than expected in last 24 hours. Seen and examined Patient walking on the hallway with supervision of his: Occupational therapist. Discussed with package sorter. Hypokalemia seems probably due to frequent intake of Tums. Objective Data Lab / Micro Data Result Diagrams: 10/25/21 04:21 10/25/21 10:30 Physical Exam Narrative General: Alert, Oriented x3, Cooperative, fatigue HEENT: Atraumatic, PERRLA, EOMI, Normocephalic Oral: No Gingival or Mucosal Lesions/ Ulcerations Neck: Supple, No JVD, Negative Carotid Bruits Lungs: Air entry diminished in bilateral lung bases. No cr epitation/rhonchi/wheezing Cardiovascular: Regular rate, Regular Rhythm, Normal S1, Normal S2, systolic murmur LLSB. Abdomen: Bowel Sounds Present, Soft, Non Tender, Non-Distended : No renal angle tenderness. No suprapubic tenderness. Extremities: No edema, Capillary Refill Less than 3 Seconds Skin: No rashes, No breakdown Musculoskeletal: No Tenderness to Palpation of Joints or Extremities. Muscle strength 4+/5 at major joints of lower extremities Neurological: Cranial nerves II-XII grossly intact, DTR 2+/4 and Symmetrical Psych/Mental Status: Flat affect. Assessment & Plan Assessment/Plan (1) Hyponatremia: PLAN: This patient was seen in conjunction with MERCHANDISE FOR RESALE PURCHASING AGENTSamanta. I have independently interviewed and examined the patient and reviewed pertinent history, examination findings, laboratory and plan of management. I have reviewed the note and agree with the documented findings with the few additional points. In brief, patient is admitted for generalized nonspecific symptoms of weakness, anorexia, malaise insomnia possible due to acute hypercalcemia. Hypercalcemia is thought to be due to over intake of Tums. Vitamin D low. Patient admitted calcium 14.2 most recently 10.0. TSH normal. PTH normal. Cortisol 35.1 elevated. Serum albumin low. Vitamin D therapeutic dose ordered. HCTZ discontinued. SPEP UPEP pending. Chest x-ray no acute finding. Health And Nutrition Specialist consulted and consult reviewed. Patient also has hyponatremia. Hyponatremia is more chronic most likely from beer proteinemia, low solute intake. HCTZ discontinued. Initially patient was on IV fluid normal saline rapid improvement of hyponatremia, increased more than 10 mEq in less than 24 hours therefore IV fluid changed to D5W to avoid osmotic demyelinization. Goal is to increase serum sodium by 4 to 6 mmol/day around 130s to 134. Discussed with package sorter Acute kidney injury resolved with IV fluid. Chronic smoker, nicotine dependence, Secondary erythrocytosis from chronic smoker. No acute alcohol withdrawal symptoms Peripheral arterial disease, GERD severe protein malnourished. I have discussed my assessment with MERCHANDISE FOR RESALE PURCHASING AGENTSamanta and orders have been reviewed. Total time of the visit includes total time spent in counseling or coordination of care, (more than 50% of the total time, spent in obtaining medical information from nurses and other ancillary care providers,explaining to the patient about labs, imaging, diagnosis and management), discussion with nurse consultant, review of labs and imaging is 30 minutes; I spent 18 minutes, more than half time and MERCHANDISE FOR RESALE PURCHASING AGENT spent 12 minutes Charges/Coding Visit Charges Inpatient E&M: 23940 Subs Hosp L2
[2021-10-25 10:51] LABS: Sodium Level 133 mmol/L (136-145)
[2021-10-25 14:35] LABS: Sodium Level 133 mmol/L (136-145)
[2021-10-25 18:37] LABS: Sodium Level 134 mmol/L (136-145)
--- NOTE | 2021-10-25 19:32 | NURSING ---
this RN spoke with dr. Som jones, notified with pt Nela of 134. TORB from to stop fluids and cancel Na lab q4. Will check BMP in the morning.
[2021-10-25] MEDS: Carvedilol 25 MG Tablet PO (21:26)
[2021-10-25] MEDS: 0.9% Saline Lock 10 ML Syringe IV (21:29)
[2021-10-26] VITALS (10 sets, daily range): BP systolic 105–159; BP diastolic 57–80; PULSE 73–93; RESP 16–18; TEMP 36.5–37.1; O2SAT 98–99
[2021-10-26] MEDS: Acetaminophen 325 MG Tablet 650 MG PO ×3 (04:03→19:40)
[2021-10-26 06:41] LABS: Albumin, Serum 2.3 g/dL (3.2-5.0); BUN 15 mg/dL (7-18); BUN/Creat Ratio 35.6 RATIO (10-20); Chloride 103 mmol/L (98-107); Creatinine, Serum 0.42 mg/dL (0.55-1.02); EST Glomerular Filtration Rate 165 mL/min (>60); Est Glom Filt Rate - Afr Amer 200 mL/min (>60); Estimated Creatinine Clearance 139.54 ml/min; Glucose 112 mg/dL (74-106); Phosphorus 0.5 mg/dL (2.5-4.9); Sodium Level 135 mmol/L (136-145)
[2021-10-26 08:16] LABS: Magnesium 1.8 mg/dL (1.6-2.6)
[2021-10-26] MEDS: Na Biphos/Potassium Phosphate PACKET 2 PACKET PO ×3 (09:15→21:30)
[2021-10-26] MEDS: Enoxaparin 40 MG/0.4 ML Syringe SC (09:21)
[2021-10-26] MEDS: Carvedilol 25 MG Tablet PO ×2 (09:21→21:30)
[2021-10-26] MEDS: Pantoprazole Sodium 40 MG Tablet PO ×2 (09:22→21:30)
--- NOTE | 2021-10-26 10:14 | PCM.PN.REN ---
Subjective Subjective Following for hyponatremia, hypercalcemia, hypophosphatemia, and prior DANGELO. The patient denies headache, nausea, ataxia or confusion. She denies shortness of breath at rest. Objective Data Objective Data Vital Signs: Vital Signs Temp Pulse Resp BP Pulse Ox 98.2 F 84 16 130/78 H 98 10/26/21 09:18 10/26/21 09:18 10/26/21 09:18 10/26/21 09:18 10/26/21 09:18 Oxygen Delivery Method Room Air Weight: 59.1 kg Body Mass Index (BMI) 26.3 Intake & Output: Intake and Output for Last 24 Hours 10/24/21 10/25/21 10/26/21 23:59 23:59 23:59 Intake Total 3855.00 / 3855.00 2342.5 / 2342.5 120 / 120 Output Total 400 / 400 700 / 700 400 / 400 Balance 3455.00 / 3455.00 1642.5 / 1642.5 -280 / -280 Medical Nutrition Assessment Dietitian: Malnutrition Criteria Met Start: 10/24/21 12:33 Freq: Status: Active Protocol: Document 10/24/21 12:33 (Rec: 10/24/21 12:33 [id number]) Nutrition Malnutrition Evidence of Malnutrition Exists Yes Malnutrition (severe): Acute Illness/Injury Evidenced By Suboptimal Energy Intake ( Severe),Weight Loss (Severe) Clinical Problem Acute Disease or Injury Related Malnutrition Etiology severe, acute malnutrition r/t inadequate energy intake d/t acute illness Signs/Symptoms as evidenced by reported PO intake meeting <50% of estimated energy needs x 1 week; reported unintentional wt loss of 9.7#/7% wt loss x 1 week 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 Will add 120mL ensure compact 4x/ day w/ medpass for additional calories/protein if consumed. Lab / Micro Data Result Diagrams: 10/25/21 04:21 10/26/21 05:39 Labs: Laboratory Results - last 24 hr 10/25/21 10:30: Sodium 133 L 10/25/21 14:21: Sodium 133 L 10/25/21 18:20: Sodium 134 L 10/26/21 05:39: Sodium 135 L, Potassium 4.0, Chloride 103, Carbon Dioxide 29.0, BUN 15, Creatinine 0.42 L, Estim Creat Clear Calc 139.54, Est GFR (MDRD) Af Amer 200, Est GFR (MDRD) Non-Af 165, BUN/Creatinine Ratio 35.6 H, Glucose 112 H, Calcium 9.0, Phosphorus 0.5 L*, Albumin 2.3 L 10/26/21 05:39: Magnesium 1.8 Micro: Microbiology 10/23/21 19:05 Nasal Secretion SARS-CoV-2 Antigen (Rapid) - Final Physical Exam Narrative General: The patient is not in any apparent distress. HEENT: Normocephalic, atraumatic. Mucous membrane moist, no mucosal erythema. Neck: Supple, no JVD Heart: Normal S1, S2. No rubs or murmurs. Lungs: Clear to auscultation bilaterally. Abdomen: Normal bowel sound, soft, nontender, no guarding or rebound. Extremity: No edema. There is no clubbing. There is cyanosis of both hands with dry gangrene of some fingertips. Assessment & Plan Assessment/Plan (1) Hyponatremia: PLAN: -The patient presented with serum sodium of 122 mmol/L. It is unclear how long she has been hyponatremic, so we will treat her as chronic hyponatremia. -Hyponatremia is due to volume and solute depletion (urine sodium was less than 30 mmol/L on presentation with history and physical examination consistent with volume depletion). -Volume depletion may have been due to hypercalcemia induced polyuria. -The patient was treated with IV isotonic fluid with rapid improvement of hyponatremia, serum sodium was increasing by more than 10 mmol/L in less than 24 hours on the first hospital day. -The patient has multiple risk factor for osmotic demyelination syndrome: Malnutrition, alcohol use, and coexisting hypokalemia on presentation. -Therefore, IV isotonic fluid was stopped overnight on 10/24/2021. -The patient was started on D5W to be lower serum sodium to avoid osmotic demyelination. -The goal is to increase her serum sodium by around 4 to 6 mmol/L/day. -Serum sodium is now at goal in terms of the speed of correction. Risk for osmotic demyelination is much lower today. -D5W was stopped overnight. -Continue to encourage solute intake such as protein to prevent recurrence of hyponatremia. (2) Hypophosphatemia: PLAN: -Phosphorus level was 0.5 mg/dL this morning. -I suspect that the patient has baseline poor nutrition with exacerbation of hypophosphatemia from redistribution (refeeding syndrome). -Phosphorus is being repleted both intravenously and orally. -Would keep the patient admitted for now until phosphorus level is consistently above 2 mg/dL. (3) Hypercalcemia: PLAN: -This is likely due to excessive intake of Tums prior to admission. -Her PTH is appropriately suppressed. 25-vitamin D level is actually low. 1,25-vitamin D level is pending. -Calcium level has normalized with volume repletion and discontinuation of calcium carbonate. -We will continue to monitor serum calcium. (4) DANGELO (acute kidney injury): PLAN: -Resolved. -Suspect DANGELO was due to volume depletion related to polyuria from hypercalcemia. -Renal function has improved with volume repletion. -We will continue to monitor renal function. (5) HTN (hypertension): QUALIFIERS: Hypertension type: unspecified Qualified Code(s): I10 - Essential (primary) hypertension PLAN: -BP is reasonably controlled on carvedilol only. -The patient was also on lisinopril?HCTZ at home. Lisinopril is on hold because of DANGELO. Hydrochlorothiazide is on hold because of hyponatremia and hypercalcemia. -If blood pressure remains high later today, we can restart lisinopril without hydrochlorothiazide. (6) Hypokalemia: PLAN: -Resolved. -The patient presented with serum potassium of 2.9 mmol/L on 10/23/2021. -Suspect hypokalemia was due to polyuria related to hypercalcemia. -Potassium level improved with repletion. -We will monitor serum potassium levels.
[2021-10-26] MEDS: Senna/Docusate Sodium 1 Tablet 2 TABLET PO (11:12)
--- NOTE | 2021-10-26 11:21 | PN.HOSP_ITS ---
Documented by User: Samanta Torres NP, DYE PENETRANT TESTING TECHNICIAN-C 10/26/21 11:30 Subjective Subjective Patient seen and examined. Denies current symptoms or complaints. Denies further epigastric discomfort. Phosphorus being replaced. Objective Data Objective Data Vital Signs: Vital Signs Temp Pulse Resp BP Pulse Ox 98.2 F 84 16 130/78 H 98 10/26/21 09:18 10/26/21 09:18 10/26/21 09:18 10/26/21 09:18 10/26/21 09:18 Oxygen Delivery Method Room Air Weight: 130 lb 4.691 oz Body Mass Index (BMI) 26.3 Intake & Output: Intake and Output for Last 24 Hours 10/24/21 10/25/21 10/26/21 23:59 23:59 23:59 Intake Total 3855.00 / 3855.00 2342.5 / 2342.5 120 / 120 Output Total 400 / 400 700 / 700 400 / 400 Balance 3455.00 / 3455.00 1642.5 / 1642.5 -280 / -280 Medical Nutrition Assessment Dietitian: Malnutrition Criteria Met Start: 10/24/21 12:33 Freq: Status: Active Protocol: Document 10/24/21 12:33 AG (Rec: 10/24/21 12:33 [id number]) Nutrition Malnutrition Evidence of Malnutrition Exists Yes Malnutrition (severe): Acute Illness/Injury Evidenced By Suboptimal Energy Intake ( Severe),Weight Loss (Severe) Clinical Problem Acute Disease or Injury Related Malnutrition Etiology severe, acute malnutrition r/t inadequate energy intake d/t acute illness Signs/Symptoms as evidenced by reported PO intake meeting <50% of estimated energy needs x 1 week; reported unintentional wt loss of 9.7#/7% wt loss x 1 week 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 Will add 120mL ensure compact 4x/ day w/ medpass for additional calories/protein if consumed. Lab / Micro Data Result Diagrams: 10/25/21 04:21 10/26/21 05:39 Labs: Laboratory Results - last 24 hr 10/25/21 14:21: Sodium 133 L 10/25/21 18:20: Sodium 134 L 10/26/21 05:39: Sodium 135 L, Potassium 4.0, Chloride 103, Carbon Dioxide 29.0, BUN 15, Creatinine 0.42 L, Estim Creat Clear Calc 139.54, Est GFR (MDRD) Af Amer 200, Est GFR (MDRD) Non-Af 165, BUN/Creatinine Ratio 35.6 H, Glucose 112 H, Calcium 9.0, Phosphorus 0.5 L*, Albumin 2.3 L 10/26/21 05:39: Magnesium 1.8 Micro: Microbiology 10/23/21 19:05 Nasal Secretion SARS-CoV-2 Antigen (Rapid) - Final Physical Exam Const alert, oriented x3 and no apparent distress Orientation / Consciousness: awake, oriented to person, oriented to place and oriented to time HEENT normocephalic and moist oral mucous membranes Eyes PERRL, EOMs intact bilaterally and conjunctivae normal Neck no lymphadenopathy Resp clear to auscultation bilaterally Auscultation: diminished lung sounds Cardio regular rate, regular rhythm and no murmurs Peripheral Pulses: pulses 2+ throughout GI normal to inspection, nondistended, normoactive bowel sounds, non-tender and non-distended Extremity normal to inspection Skin no rashes or lesions noted Lesions: no lesions Rashes: no rashes Trauma: no lacerations or abrasions Neuro CN's II-XII intact bilaterally, no focal motor deficits, no sensory deficits noted and deep tendon reflexes 2+ bilaterally Psych mental status grossly normal and affect normal Assessment & Plan Assessment/Plan (1) Hypophosphatemia: (2) Hypokalemia: (3) DANGELO (acute kidney injury): PLAN: 1. Acute hypercalcemia-resolved. HCTZ discontinued. Patient reports frequent use of Tums for indigestion. Nephrology consulted. Trend BMP. 2. Hyponatremia, likely hypovolemic hyponatremia-nephrology following. Sodium corrected rapidly, transition to D5W to avoid osmotic demyelination. Trend sodium. Stable. 3. Hypophosphatemia-nephrology following. Suspect secondary to refeeding syndrome. Replace IV and orally. Nephrology recommends patient continue admission until phosphorus level above 2. Trend labs. 4. Acute kidney injury-resolved with IV fluids. 5. Hypertension-continue carvedilol. Lisinopril/HCTZ held secondary to acute kidney injury. As needed hydralazine. 6. Alcohol dependence-encouraged cessation. No active withdrawal symptoms. 7. Erythrocytosis-likely due to smoking and dehydration. Resolved. 8. Peripheral arterial disease-does not appear to be on regimen. Follows with vascular surgery. 9. Tobacco abuse-encouraged cessation. 10. GERD-initiated on PPI. 11. Severe protein calorie malnutrition-dietitian following. Continue supplement per dietitian recommendations. DVT prophylaxis-Lovenox subcu This patient was seen by SANDIP Willis under the supervision of Dr. Rodríguez. Time spent examining patient, reviewing data and subsequent management of care: 10 minutes Documented by User: Dr. Chriss Rodríguez MD 10/26/21 14:29 Subjective Subjective Seen and examined. Follow-up for severe critically low hypophosphatemia Patient still has generalized weakness. Objective Data Lab / Micro Data Result Diagrams: 10/25/21 04:21 10/26/21 05:39 Physical Exam Narrative General: Alert, Oriented x3, Cooperative, fatigue HEENT: Atraumatic, PERRLA, EOMI, Normocephalic Oral: No Gingival or Mucosal Lesions/ Ulcerations Neck: Supple, No JVD, Negative Carotid Bruits Lungs: Air entry diminished in bilateral lung bases. No crepitation/rhonchi/wheezing Cardiovascular: Regular rate, Regular Rhythm, Normal S1, Normal S2, systolic murmur LLSB. Abdomen: Bowel Sounds Present, Soft, Non Tender, Non-Distended : No renal angle tenderness. No suprapubic tenderness. Extremities: No edema, Capillary Refill Less than 3 Seconds Skin: No rashes, No breakdown Musculoskeletal: No Tenderness to Palpation of Joints or Extremities. Muscle strength 4+/5 at major joints of lower extremities Neurological: Cranial nerves II-XII grossly intact, DTR 2+/4 and Symmetrical Psych/Mental Status: Flat affect. Assessment & Plan Assessment/Plan (1) Hypophosphatemia: PLAN: This patient was seen in conjunction with Samanta CHAKRABORTY. I have independently interviewed and examined the patient and reviewed pertinent history, examination findings, laboratory and plan of management. I have reviewed the note and agree with the documented findings with the few additional points. In brief, patient is admitted for generalized nonspecific symptoms of weakness, anorexia, malaise insomnia possible due to acute hypercalcemia. Hypercalcemia is thought to be due to over intake of Tums. Vitamin D low. Patient admitted calcium 14.2 most recently 10.0. TSH normal. PTH normal. Cortisol 35.1 elev ated. Serum albumin low. Vitamin D therapeutic dose ordered. HCTZ discontinued. SPEP UPEP pending. Chest x-ray no acute finding. Servicenow Administrator Developer consulted and consult reviewed. Repeat calcium 9.0. Patient also has hyponatremia. Hyponatremia is more chronic most likely from beer proteinemia, low solute intake. HCTZ discontinued. Initially patient was on IV fluid normal saline rapid improvement of hyponatremia, increased more than 10 mEq in less than 24 hours therefore IV fluid changed to D5W to avoid osmotic demyelinization. Goal is to increase serum sodium by 4 to 6 mmol/day around 13 0s to 134. Discussed with link knitting machine operator 10/26: Sodium is 135, total rise was 2 mEq limited in 24 hours. D5W was discontinued overnight. Increase fluid intake. Severe critically low hypophosphatemia: Patient on IV potassium phosphate and oral phosphate. Possible due to refeeding. Patient had not been eating or drinking for past several days before admission. Acute kidney injury resolved with IV fluid. Monitor serum phosphorus if needed tomorrow a.m. Chronic smoker, nicotine dependence, Secondary erythrocytosis from chronic smoker. No acute alcohol withdrawal symptoms Peripheral arterial disease, GERD severe protein malnourished. I have discussed my assessment with DYE PENETRANT TESTING TECHNICIANSamanta and orders have been reviewed. Total time of the visit includes total time spent in counseling or coordination of care, (more than 50% of the total time, spent in obtaining medical information from nurses and other ancillary care providers,explaining to the patient about labs, imaging, diagnosis and management), discussion with production consultant, review of labs and imaging is 30 minutes; I spent 18 minutes, more than half time and DYE PENETRANT TESTING TECHNICIAN spent 12 minutes Charges/Coding Visit Charges Inpatient E&M: 52879 Subs Hosp L2
[2021-10-26] MEDS: 0.9% Saline Lock 10 ML Syringe IV ×3 (14:58→19:41)
[2021-10-26 21:04] LABS: Phosphorus 1.9 mg/dL (2.5-4.9)
[2021-10-27 01:53] VITALS: BP 126/73; PULSE 87; RESP 18; TEMP 36.7; O2SAT 99
[2021-10-27] MEDS: MELATONIN 3 MG TABLET PO (02:04)
[2021-10-27 03:00] VITALS: PULSE 90
[2021-10-27] MEDS: Acetaminophen 325 MG Tablet 650 MG PO ×2 (03:02→09:09)
[2021-10-27] MEDS: Na Biphos/Potassium Phosphate PACKET 2 PACKET PO (05:41)
[2021-10-27 05:44] VITALS: BP 155/70; PULSE 89; RESP 18; TEMP 36.5; O2SAT 100
[2021-10-27 07:08] LABS: Albumin, Serum 2.2 g/dL (3.2-5.0); Anion Gap 3 (5-15); BUN 13 mg/dL (7-18); BUN/Creat Ratio 28.6 RATIO (10-20); Chloride 107 mmol/L (98-107); Creatinine, Serum 0.46 mg/dL (0.55-1.02); EST Glomerular Filtration Rate 151 mL/min (>60); Est Glom Filt Rate - Afr Amer 183 mL/min (>60); Estimated Creatinine Clearance 127.41 ml/min; Glucose 120 mg/dL (74-106); Phosphorus 2.1 mg/dL (2.5-4.9); Potassium 4.8 mmol/L (3.5-5.1); Sodium Level 136 mmol/L (136-145)
[2021-10-27 07:10] VITALS: PULSE 84
[2021-10-27 08:43] VITALS: BP 140/74; PULSE 85; RESP 16; TEMP 36.6; O2SAT 100
[2021-10-27] MEDS: Carvedilol 25 MG Tablet PO (08:47)
[2021-10-27] MEDS: Enoxaparin 40 MG/0.4 ML Syringe SC (08:47)
[2021-10-27] MEDS: Pantoprazole Sodium 40 MG Tablet PO (08:47)
--- NOTE | 2021-10-27 10:47 | PCM.DC ---
Discharge Instructions Diet Discharge Diet: No restrictions Activity Discharge Activity: Return to Normal Activity Dressing / Incision Call your doctor if you observe: Shortness of breath, Dizziness and Chest pain Follow Up Care Test Results: Test results from this visit will be discussed in further detail at your follow-up appointment, if applicable. Discharge Plan Admission Admit Date/Time: 10/23/21 20:37 Primary Reason for Your Visit: Hypercalcemia, hyponatremia, hypophosphatemia Attending Provider: Jason Coreas Primary Care Provider: Jason Padron Consulting Providers: Gemma Hastings Discharge Orders/Prescriptions Prescriptions: New pantoprazole 40 mg Tablet,Delayed Release (Dr/Ec) 40 mg PO DAILY 30 Days Qty: 30 RF: 0 ergocalciferol (vitamin D2) [Vitamin D2] 1,250 mcg (50,000 unit) Capsule 1.25 mg PO Q7D 30 Days Qty: 5 RF: 0 potassium, sodium phosphates 280-160-250 mg Powder In Packet 2 packet PO TID 30 Days RF: 0 carvedilol 12.5 mg tablet 12.5 mg PO BID Qty: 60 RF: 0 lisinopril 10 mg tablet 10 mg PO DAILY Qty: 30 RF: 0 Discontinued carvedilol 6.25 mg tablet 6.25 mg PO BID RF: 0 lisinopril-hydrochlorothiazide 10-12.5 mg tablet 1 tab PO DAILY RF: 0 Referrals / Follow Up: Jason Padron MD [Primary Care Provider] - See Referral Note (3-5 Days) Simone Kearns MD [STAFF PHYSICIAN] - Within 1 Week Disposition Disposition (needs filled in before D/C Order can be placed): Home, Self Care
--- NOTE | 2021-10-27 10:52 | CASEMGMT ---
Per therapy, pt does not need any further therapy at discharge and pt states no concerns with going home. Andres HARVEY CM
--- NOTE | 2021-10-27 12:05 | DS.PCM_ITS ---
Documented by User: Samanta Torres NP, OCCUPATIONAL HYGIENIST-C 10/27/21 12:20 Providers Date of Admission: 10/23/21 Date of Discharge: 10/27/21 Primary Care Physician: Dr. Jason Padron MD Consultations 10/23/21 21:49 Consult: Nephrology Routine Consulting Provider: Gemma Hastings Reason for Consult: Electrolytes abnormality EMERGENT Consult: No MD Notified: Yes Date Notified: 10/24/21 Time Notified: 07:38 Method of Notification: Answering Service Reason For Visit: HYPONATREMIA, HYPERCALCEMIA Diagnosis Discharge Diagnosis (1) Hypophosphatemia: Status: Acute Code(s): E83.39 - Other disorders of phosphorus metabolism Medications at Discharge Home Medications carvedilol 12.5 mg PO BID #60 tab 10/27/21 ergocalciferol (vitamin D2) [Vitamin D2] 1.25 mg PO Q7D 30 Days #5 cap 10/27/21 lisinopril 10 mg PO DAILY #30 tab 10/27/21 pantoprazole 40 mg PO DAILY 30 Days #30 tab 10/27/21 potassium, sodium phosphates 2 packet PO TID 30 Days ea 10/27/21 Hospital Course Operations None Procedures None Summary of Care Provided Hospital Course: Patient is a 56-year-old female admitted 10/23/2021 due to malaise. 1. Acute hypercalcemia-resolved. HCTZ discontinued. Patient reports frequent use of Tums for indigestion. Initiated on PPI for GERD symptoms. Follow-up with PCP/nephrology at discharge. 2. Hyponatremia, likely hypovolemic hyponatremia-nephrology consulted during ad mission. Resolved. 3. Hypophosphatemia-nephrology consulted during admission. Suspect secondary to refeeding syndrome. Replaced IV and orally. Phosphorus improved to 2.1. Continue oral supplementation at discharge with recommended repeat BMP within one week. 4. Acute kidney injury-resolved with IV fluids. 5. Hypertension-continue carvedilol, lisinopril. HCTZ discontinued. 6. Alcohol dependence-encouraged cessation. No active withdrawal symptoms. 7. Erythrocytosis-likely due to smoking and dehydration. Resolved. 8. Peripheral arterial disease-does not appear to be on regimen. Follows with vascular surgery. 9. Tobacco abuse-encouraged cessation. 10. GERD-initiated on PPI. 11. Severe protein calorie malnutrition-dietitian following. Continue supplement per dietitian recommendations. Physical Exam Const alert, oriented x3 and no apparent distress Orientation / Consciousness: awake, oriented to person, oriented to place and oriented to time HEENT normocephalic and moist oral mucous membranes Eyes PERRL, EOMs intact bilaterally and conjunctivae normal Neck no lymphadenopathy Resp clear to auscultation bilaterally Auscultation: diminished lung sounds Cardio regular rate, regular rhythm and no murmurs Peripheral Pulses: pulses 2+ throughout GI normal to inspection, nondistended, normoactive bowel sounds, non-tender and non-distended Extremity normal to inspection Skin no rashes or lesions noted Lesions: no lesions Rashes: no rashes Trauma: no lacerations or abrasions Neuro CN's II-XII intact bilaterally, no focal motor deficits, no sensory deficits noted and deep tendon reflexes 2+ bilaterally Psych mental status grossly normal and affect normal This patient was seen by SANDIP Willis under the supervision of Dr. Coreas. Time spent examining patient, reviewing data and subsequent management of care: 15 minutes Medical Records Data Medical Nutrition Assessment Dietitian: Malnutrition Criteria Met Start: 10/24/21 12:33 Freq: Status: Active Protocol: Document 10/24/21 12:33 (Rec: 10/24/21 12:33 [id number]) Nutrition Malnutrition Evidence of Malnutrition Exists Yes Malnutrition (severe): Acute Illness/Injury Evidenced By Suboptimal Energy Intake ( Severe),Weight Loss (Severe) Clinical Problem Acute Disease or Injury Related Malnutrition Etiology severe, acute malnutrition r/t inadequate energy intake d/t acute illness Signs/Symptoms as evidenced by reported PO intake meeting <50% of estimated energy needs x 1 week; reported unintentional wt loss of 9.7#/7% wt loss x 1 week [employer] Status Active Problem 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 Will add 120mL ensure compact 4x/ day w/ medpass for additional calories/protein if consumed. Weight / BMI Weight Weight: 130 lb 4.691 oz Body Mass Index (BMI) 26.3 ABG / Lab / Microbiology Data Result Diagrams: 10/25/21 04:21 10/27/21 06:01 Laboratory: Laboratory Results - last 24 hr 10/26/21 20:13: Phosphorus 1.9 L 10/27/21 06:01: Sodium 136, Potassium 4.8, Chloride 107, Carbon Dioxide 26.0, Anion Gap 3 L, BUN 13, Creatinine 0.46 L, Estim Creat Clear Calc 127.41, Est GFR (MDRD) Af Amer 183, Est GFR (MDRD) Non-Af 151, BUN/Creatinine Ratio 28.6 H, Glucose 120 H, Calcium 8.0 L, Phosphorus 2.1 L, Albumin 2.2 L Microbiology: Microbiology 10/23/21 19:05 Nasal Secretion SARS-CoV-2 Antigen (Rapid) - Final D/C Instructions Discharge Diet: No restrictions Call your doctor if you observe: Shortness of breath, Dizziness and Chest pain Meaningful Use Info Meaningful Use Diagnoses (Choose all that apply): None applicable Discharge Plan Admission Admit Date/Time: 10/23/21 20:37 Primary Reason for Your Visit: Hypercalcemia, hyponatremia, hypophosphatemia Attending Provider: Jason Coreas Primary Care Provider: Jason Padron Consulting Providers: Gemma Hastings Discharge Orders/Prescriptions Prescriptions: New pantoprazole 40 mg Tablet,Delayed Release (Dr/Ec) 40 mg PO DAILY 30 Days Qty: 30 RF: 0 ergocalciferol (vitamin D2) [Vitamin D2] 1,250 mcg (50,000 unit) Capsule 1.25 mg PO Q7D 30 Days Qty: 5 RF: 0 potassium, sodium phosphates 280-160-250 mg Powder In Packet 2 packet PO TID 30 Days RF: 0 carvedilol 12.5 mg tablet 12.5 mg PO BID Qty: 60 RF: 0 lisinopril 10 mg tablet 10 mg PO DAILY Qty: 30 RF: 0 Discontinued carvedilol 6.25 mg tablet 6.25 mg PO BID RF: 0 lisinopril-hydrochlorothiazide 10-12.5 mg tablet 1 tab PO DAILY RF: 0 Referrals / Follow Up: Jason Padron MD [Primary Care Provider] - See Referral Note (3-5 Days) Simone Kearns MD [STAFF PHYSICIAN] - Within 1 Week Disposition Disposition (needs filled in before D/C Order can be placed): Home, Self Care Documented by User: Dr. Jason Coreas DO 10/27/21 19:44 Providers Date of Admission: 10/23/21 Reason For Visit: HYPONATREMIA, HYPERCALCEMIA Medications at Discharge Home Medications carvedilol 12.5 mg PO BID #60 tab 10/27/21 ergocalciferol (vitamin D2) [Vitamin D2] 1.25 mg PO Q7D 30 Days #5 cap 10/27/21 lisinopril 10 mg PO DAILY #30 tab 10/27/21 pantoprazole 40 mg PO DAILY 30 Days #30 tab 10/27/21 potassium, sodium phosphates 2 packet PO TID 30 Days ea 10/27/21 ABG / Lab / Microbiology Data Result Diagrams: 10/25/21 04:21 10/27/21 06:01 Discharge Plan Admission Admit Date/Time: 10/23/21 20:37 Primary Reason for Your Visit: Hypercalcemia, hyponatremia, hypophosphatemia Attending Provider: Jason oCreas Primary Care Provider: Jason Padron Consulting Providers: Gemma Hastings Discharge Orders/Prescriptions Prescriptions: New pantoprazole 40 mg Tablet,Delayed Release (Dr/Ec) 40 mg PO DAILY 30 Days Qty: 30 RF: 0 ergocalciferol (vitamin D2) [Vitamin D2] 1,250 mcg (50,000 unit) Capsule 1.25 mg PO Q7D 30 Days Qty: 5 RF: 0 potassium, sodium phosphates 280-160-250 mg Powder In Packet 2 packet PO TID 30 Days RF: 0 carvedilol 12.5 mg tablet 12.5 mg PO BID Qty: 60 RF: 0 lisinopril 10 mg tablet 10 mg PO DAILY Qty: 30 RF: 0 Discontinued carvedilol 6.25 mg tablet 6.25 mg PO BID RF: 0 lisinopril-hydrochlorothiazide 10-12.5 mg tablet 1 tab PO DAILY RF: 0 Referrals / Follow Up: Jason Padron MD [Primary Care Provider] - See Referral Note (3-5 Days) Simone Kearns MD [STAFF PHYSICIAN] - Within 1 Week Disposition Disposition (needs filled in before D/C Order can be placed): Home, Self Care Charges/Coding Addendum Addendum: Patient was seen and examined today independently of Samanta Torres, patient appears stable for discharge home at this time. On examination she appeared in good health and spirits, she does not appear to be in any distress. Vital signs as documented. Skin warm and dry and without overt rashes. Neck without JVD, thyroid appears normal, trachea is midline, neck is supple. Lungs clear, normal air movement was noted. Heart exam notable for regular rhythm, normal sounds and absence of murmurs, rubs or gallops. Abdomen unremarkable and without evidence of organomegaly, masses, or abdominal aortic enlargement, bowel sounds are present in all 4 quadrants, no abdominal tenderness was noted. Extremities nonedematous, no cyanosis was noted, no clubbing was noted. Neuro: Cranial nerves II through XII are grossly intact, no focal motor deficits were noted, sensation to light touch and pinprick is intact, motor exam 5/5 throughout. Psych: Patient is alert and oriented x3, she does not appear anxious or depressed, she does not appear agitated. Impression: #1 acute hypercalcemia-resolved, etiology of hypercalcemia not exactly understood, patient reports frequent use of Tums as an outpatient and this may be a factor. #2 hyponatremia-this is resolved at this time, this may be secondary to volume depletion, this will need to be rechecked as an outpatient #3 acute kidney injury-resolved with IV fluid administration, hydrochlorothiazide was discontinued that the patient was taking at home #4 essential hypertension-patient will continue on carvedilol and lisinopril at home #5 severe protein and caloric malnutrition-nutritional services recommending continued intake of a regular diet, patient received Ensure compact 4 times a day with [employer] while she was hospitalized I have reviewed Samanta Torres's discharge summary including her medical assessment and plan of care with the above additions endorse it. Total clinical time spent by myself addressing the patient's medical issues, reviewing all the patient's medical data, and collaborating with the patient's care team: 20 minutes Visit Charges Inpatient E&M: 18192 Disch Hosp
[2021-10-27 13:14] VITALS: BP 124/59; PULSE 87; RESP 16; TEMP 36.9; O2SAT 94
[2021-10-27 13:19] LABS: Vitamin D 1,25-Dihydroxy <5.0 pg/mL (19.9-79.3)
[2021-10-27 14:09] LABS: Albumin 2.6 g/dL (2.9-4.4); Alpha-1-Globulins 0.3 g/dL (0.0-0.4); Alpha-2-Globulins 0.8 g/dL (0.4-1.0); Gamma Globulin 0.7 g/dL (0.4-1.8); Immunoglobulin A 152 mg/dL (87-352); Immunoglobulin G 743 mg/dL (586-1602); Immunoglobulin M 43 mg/dL (26-217); PROEL- TOTAL PROTEIN 5.3 g/dL (6.0-8.5)
[2021-10-28 15:08] LABS: PROELU- Albumin, Urine 24.7 % (.); PROELU- Alpha-1-Globulin,Ur 5.1 % (.); PROELU- Alpha-2-Globulin,Ur 22.4 % (.); PROELU- Beta Globulin, Ur 28.8 % (.); PROELU- Gamma Globulin, Ur 19.1 % (.); Total Protein, Ur 8.2 mg/dL (Not Estab.)
== END 2021-10-27 13:42 | disposition home or self-care (01) | DRG 640 ==
LOC: ED 19:55 → PCU 20:50
PROVIDERS: Internal Medicine; Internal Medicine Nephrology; Nurse Practitioner Family; Admitting Provider Hospitalist; Emergency Provider Physician Assistant; PCP Family Medicine; Visit Provider Internal Medicine
DX: E83.52 Hypercalcemia (principal); E43 Unspecified severe protein-calorie malnutrition; N17.9 Acute kidney failure, unspecified; E87.1 Hypo-osmolality and hyponatremia; I73.9 Peripheral vascular disease, unspecified; F10.20 Alcohol dependence, uncomplicated; E87.6 Hypokalemia; F17.200 Nicotine dependence, unspecified, uncomplicated; I10 Essential (primary) hypertension; E83.39 Other disorders of phosphorus metabolism; E86.9 Volume depletion, unspecified; E86.0 Dehydration; K21.9 Gastro-esophageal reflux disease without esophagitis; D75.1 Secondary polycythemia; Z79.899 Other long term (current) drug therapy; Z68.26 Body mass index [BMI] 26.0-26.9, adult
CPT/HCPCS: 36415; 71045; 80048; 80069; 80076; 82306; 82533; 82607; 82652; 82784; 83735; 83930; 83935; 83970; 84100; 84165; 84166; 84295; 84300; 84443; 84550; 85025; 85652; 86334; 87426; 97161; 97165; 97802; 99285; J7030; J7050; A4216